=== PATIENT | male | born 1960 | race Caucasian/White ===

== ENCOUNTER 2020-05-09 12:58 | Inpatient (IN) | payer MEDICAID ==
[~2020-05-09] VITALS: Ht 188 cm; Wt 155.1 kg
[2020-05-09] MEDS ORDERED: PANTOPRAZOLE SODIUM 40 MG/VIAL IV ONE (13:30)
[2020-05-09] MEDS ORDERED: CEFTRIAXONE 1 G PREMIX 50 ML IV ONE (13:30)
[2020-05-09] MEDS ORDERED: CALCIUM GLUCONATE 100MG/ML 10ML VIAL IV ONE (13:30)
[2020-05-09 14:39] LABS: BASOPHILS % 0.6 % (0.0-2.0); EOSINOPHILS % 5.6 % (0.0-5.0); HEMATOCRIT. 22.7 % (42.0-52.0); HEMOGLOBIN. 7.6 g/dL (14.0-18.0); LYMPHOCYTES % 23.8 % (20.0-50.0); MEAN CORPUSCULAR HEMOGLOBIN 37.1 pg (28.0-32.0); MEAN CORPUSCULAR VOLUME 110.8 fL (80.0-94.0); MEAN PLATELET VOLUME 7.8 fl (7.4-10.4); MONOCYTES % 6.3 % (2.0-8.0); NEUTROPHILS % 63.7 % (40.0-76.0); PLATELET 90 x1000/uL (130-400); RED BLOOD CELL COUNT 2.05 mill/uL (4.7-6.1); RED CELL DISTRIBUTION WIDTH 15.4 % (11.6-14.6)
[2020-05-09 14:44] LABS: CHLORIDE 116 mEq/L (98-107)
[2020-05-09 15:15] LABS: PLATELET ESTIMATE DECREASED
[2020-05-09] MEDS ORDERED: LORAZEPAM 0.5MG TABLET PO PRN (16:15)
[2020-05-09] MEDS ORDERED: ONDANSETRON HCL 4MG/2ML INJ IV PRN (16:15)
[2020-05-09] MEDS ORDERED: ACETAMINOPHEN 325MG TABLET PO PRN ×2 (16:15)
[2020-05-09] MEDS ORDERED: IPRATROPIUM/ALBUTEROL 0.5-3(2.5)MG/3ML NEB HHN PRN (16:15)
[2020-05-09 16:37] LABS: INR 1.1; PROTHROMBIN TIME 11.8 sec (9.6-11.0)
[2020-05-09] MEDS ORDERED: HYDROMORPHONE HCL/PF 2MG/ML CPJ IV NR (17:30)
[2020-05-09] MEDS: PANTOPRAZOLE SODIUM 40 MG/VIAL IV SCH (22:06)
[2020-05-09] MEDS: RIFAXIMIN 200MG TABLET PO SCH (22:14)
[2020-05-09 23:11] LABS: CHLORIDE 117 mEq/L (98-107)
[2020-05-10] VITALS (24 sets, daily range): BP systolic 127–168; BP diastolic 56–83
[2020-05-10] MEDS ORDERED: MORP30TA66 MT (03:43)
[2020-05-10] MEDS ORDERED: FURO80TA87 PO (03:43)
[2020-05-10] MEDS ORDERED: LIP40 MT (03:43)
[2020-05-10] MEDS ORDERED: INSLIS SUBCUT (03:43)
[2020-05-10] MEDS ORDERED: GABA-532 MT (03:43)
[2020-05-10] MEDS ORDERED: METF-414 MT (03:43)
[2020-05-10] MEDS ORDERED: DEXTROSE 50% WATER 50ML SYRINGE IV PRN (04:30)
[2020-05-10] MEDS: BLOOD SUGAR DIAGNOSTIC STRIP TEST SCH ×4 (06:15→20:27)
[2020-05-10] MEDS: INSULIN LISPRO 100 UNITS/ML SUBCUT SCH ×4 (07:06→20:27)
[2020-05-10] MEDS ORDERED: INSULIN REGULAR (HUMULIN R) 300UNITS/3ML VIAL IV SCH (08:00)
[2020-05-10] MEDS: DEXT 5%/0.9% NACL 1,000 ML IV SCH ×3 (08:00→23:33)
[2020-05-10] MEDS ORDERED: DEXTROSE 50% WATER 50ML SYRINGE IV SCH (08:00)
[2020-05-10] MEDS ORDERED: PNEUMOCOCCAL 23-VAL P-SAC VAC 0.5 ML IM ONE (08:00)
[2020-05-10] MEDS: PANTOPRAZOLE SODIUM 40 MG/VIAL IV SCH ×2 (08:12→20:27)
[2020-05-10 08:50] LABS: BASOPHILS % 0.6 % (0.0-2.0); EOSINOPHILS % 5.1 % (0.0-5.0); LYMPHOCYTES % 29.6 % (20.0-50.0); MEAN CORPUSCULAR HEMOGLOBIN 37.2 pg (28.0-32.0); MEAN CORPUSCULAR VOLUME 110.3 fL (80.0-94.0); MEAN PLATELET VOLUME 7.7 fl (7.4-10.4); MONOCYTES % 5.8 % (2.0-8.0); NEUTROPHILS % 58.9 % (40.0-76.0); PLATELET 71 x1000/uL (130-400); RED BLOOD CELL COUNT 1.71 mill/uL (4.7-6.1); RED CELL DISTRIBUTION WIDTH 15.1 % (11.6-14.6)
[2020-05-10] MEDS: RIFAXIMIN 200MG TABLET PO SCH (09:00)
[2020-05-10 09:32] LABS: HEMATOCRIT. 18.9 % (42.0-52.0); HEMOGLOBIN. 6.4 g/dL (14.0-18.0)
[2020-05-10 09:33] LABS: VITAMIN B12 SERUM 691 pg/mL (211-911)
[2020-05-10 09:55] LABS: FOLIC ACID (FOLATE) SERUM >20 ng/mL ng/mL (>5.38)
[2020-05-10] MEDS ORDERED: ALBUTEROL (0.083%) 2.5MG/3ML NEB HHN NR (11:00)
[2020-05-10 11:20] LABS: FERRITIN 151 ng/mL (22-322)
[2020-05-10] MEDS ORDERED: SODIUM POLYSTYRENE SULFONATE 15 G/60 ML BOT PO NR ×2 (12:00→16:30)
[2020-05-10] MEDS: HYDROCODONE/ACETAMINOPHEN 5/325MG TABLET PO PRN ×2 (12:17→23:41)
[2020-05-10] MEDS ORDERED: CEFTRIAXONE 1,000 MG in DEXTROSE 5% WATER 50 ML IV SCH (13:00)
[2020-05-10] MEDS: CEFTRIAXONE 1,000 MG in DEXTROSE 5% WATER 50 ML IV SCH (14:32)
[2020-05-10 15:25] LABS: HEMATOCRIT 20.7 % (42.0-52.0)
[2020-05-10] MEDS: RIFAXIMIN 550 MG TABLET PO SCH (18:02)
[2020-05-10] MEDS: CLONIDINE 0.1MG TABLET PO PRN (20:27)
[2020-05-10 21:57] LABS: BASOPHILS % 0.6 % (0.0-2.0); EOSINOPHILS % 2.8 % (0.0-5.0); HEMATOCRIT. 23.5 % (42.0-52.0); HEMOGLOBIN. 8.1 g/dL (14.0-18.0); LYMPHOCYTES % 20.7 % (20.0-50.0); MEAN CORPUSCULAR HEMOGLOBIN 35.9 pg (28.0-32.0); MEAN CORPUSCULAR VOLUME 103.7 fL (80.0-94.0); MEAN PLATELET VOLUME 7.2 fl (7.4-10.4); MONOCYTES % 7.9 % (2.0-8.0); PLATELET 72 x1000/uL (130-400); RED BLOOD CELL COUNT 2.26 mill/uL (4.7-6.1); RED CELL DISTRIBUTION WIDTH 18.6 % (11.6-14.6)
[2020-05-11] VITALS (10 sets, daily range): BP systolic 140–177; BP diastolic 68–89
[2020-05-11] MEDS: BLOOD SUGAR DIAGNOSTIC STRIP TEST SCH ×4 (06:06→21:00)
[2020-05-11 06:15] LABS: BASOPHILS % 0.6 % (0.0-2.0); EOSINOPHILS % 4.7 % (0.0-5.0); HEMOGLOBIN. 7.6 g/dL (14.0-18.0); LYMPHOCYTES % 27.2 % (20.0-50.0); MEAN CORPUSCULAR HEMOGLOBIN 36.6 pg (28.0-32.0); MEAN CORPUSCULAR VOLUME 106.4 fL (80.0-94.0); MEAN PLATELET VOLUME 7.8 fl (7.4-10.4); MONOCYTES % 7.7 % (2.0-8.0); NEUTROPHILS % 59.8 % (40.0-76.0); PLATELET 70 x1000/uL (130-400); RED BLOOD CELL COUNT 2.07 mill/uL (4.7-6.1); RED CELL DISTRIBUTION WIDTH 18.7 % (11.6-14.6)
[2020-05-11 06:18] LABS: CLARITY URINE CLOUDY (CLEAR); COLOR URINE YELLOW (YELLOW); KETONES URINE TRACE (NEGATIVE); LEUKOCYTE ESTERASE URINE 3+ (NEGATIVE); NITRITE URINE NEGATIVE (NEGATIVE); OCCULT BLOOD URINE 2+ (NEGATIVE); PROTEIN URINE 3+ (NEGATIVE); SPECIFIC GRAVITY URINE 1.017 (1.005-1.030); UROBILINOGEN URINE 0.2 E.U./dL (0.2-1.0)
[2020-05-11 06:21] LABS: INR 1.2; PROTHROMBIN TIME 12.6 sec (9.6-11.0)
[2020-05-11] MEDS: INSULIN LISPRO 100 UNITS/ML SUBCUT SCH ×4 (07:20→21:00)
[2020-05-11] MEDS: DEXT 5%/0.9% NACL 1,000 ML IV SCH ×4 (08:06→23:40)
[2020-05-11] MEDS: RIFAXIMIN 550 MG TABLET PO SCH ×2 (08:07→16:47)
[2020-05-11] MEDS: PANTOPRAZOLE SODIUM 40 MG/VIAL IV SCH ×2 (08:08→21:25)
[2020-05-11] MEDS: CALCIUM ACETATE 667MG CAPSULE PO SCH ×2 (09:15→16:46)
[2020-05-11] MEDS: SODIUM POLYSTYRENE SULFONATE 15 G/60 ML BOT PO NR ×2 (10:20→10:30)
[2020-05-11] MEDS: MORPHINE SULFATE 2 MG/ML CPJ (NOT FOR IM USE) IV PRN ×2 (10:20→20:20)
[2020-05-11 11:32] LABS: CHLORIDE 119 mEq/L (98-107)
[2020-05-11] MEDS: CEFTRIAXONE 1,000 MG in DEXTROSE 5% WATER 50 ML IV SCH (12:51)
[2020-05-11] MEDS ORDERED: PROPOFOL 200MG/20ML VIAL IV ONE (15:47)
[2020-05-11] MEDS ORDERED: LABETALOL 5MG/ML SYR 20 MG/4 ML SYRINGE IV PRN (16:00)
[2020-05-11] MEDS ORDERED: ONDANSETRON HCL 4MG/2ML INJ IV PRN (16:00)
[2020-05-11] MEDS ORDERED: HYDROMORPHONE HCL/PF 2MG/ML CPJ IV PRN (16:00)
[2020-05-11] MEDS ORDERED: MEPERIDINE HCL/PF 25MG/ML CPJ IV PRN (16:00)
[2020-05-11] MEDS: BACITRACIN 15GM TUBE TOP SCH ×2 (16:46→21:26)
[2020-05-11 19:44] LABS: HEMATOCRIT 23.8 % (42.0-52.0); HEMOGLOBIN 8.1 g/dL (14.0-18.0); MEAN CORPUSCULAR HEMOGLOBIN 36.4 pg (28.0-32.0); MEAN CORPUSCULAR VOLUME 106.3 fL (80.0-94.0); PLATELET 69 x1000/uL (130-400); RED BLOOD CELL COUNT 2.24 mill/uL (4.7-6.1); RED CELL DISTRIBUTION WIDTH 17.8 % (11.6-14.6)
[2020-05-11 19:53] LABS: CHLORIDE 120 mEq/L (98-107)
[2020-05-11 20:20] LABS: HEPATITIS B SURFACE ANTIGEN NEGATIVE
[2020-05-11 20:50] LABS: HEPATITIS A AB IGM NEGATIVE (NEGATIVE)
[2020-05-11] MEDS ORDERED: SORBITOL 70% SOLN 30ML PO NR (21:00)
[2020-05-12] VITALS (11 sets, daily range): BP systolic 143–183; BP diastolic 63–98
[2020-05-12] MEDS: CLONIDINE 0.1MG TABLET PO PRN ×2 (00:41→06:53)
[2020-05-12] MEDS: MORPHINE SULFATE 2 MG/ML CPJ (NOT FOR IM USE) IV PRN ×4 (02:26→21:40)
[2020-05-12] MEDS ORDERED: SORBITOL 70% SOLN 30ML PO NR ×2 (06:00)
[2020-05-12] MEDS: BLOOD SUGAR DIAGNOSTIC STRIP TEST SCH ×4 (06:28→21:00)
[2020-05-12] MEDS: INSULIN LISPRO 100 UNITS/ML SUBCUT SCH ×4 (06:28→21:00)
[2020-05-12 07:45] LABS: BASOPHILS % 0.9 % (0.0-2.0); EOSINOPHILS % 5.1 % (0.0-5.0); HEMATOCRIT. 22.7 % (42.0-52.0); HEMOGLOBIN. 7.8 g/dL (14.0-18.0); LYMPHOCYTES % 24.3 % (20.0-50.0); MEAN CORPUSCULAR VOLUME 105.1 fL (80.0-94.0); MEAN PLATELET VOLUME 7.8 fl (7.4-10.4); MONOCYTES % 7.4 % (2.0-8.0); NEUTROPHILS % 62.3 % (40.0-76.0); PLATELET 70 x1000/uL (130-400); RED BLOOD CELL COUNT 2.16 mill/uL (4.7-6.1); RED CELL DISTRIBUTION WIDTH 17.9 % (11.6-14.6)
[2020-05-12] MEDS: DEXT 5%/0.9% NACL 1,000 ML IV SCH (07:50)
[2020-05-12] MEDS: RIFAXIMIN 550 MG TABLET PO SCH ×2 (08:03→17:00)
[2020-05-12] MEDS: PANTOPRAZOLE SODIUM 40 MG/VIAL IV SCH ×2 (08:03→21:40)
[2020-05-12] MEDS: AMLODIPINE 5MG TABLET PO SCH (08:07)
[2020-05-12] MEDS: CALCIUM ACETATE 667MG CAPSULE PO SCH ×2 (08:07→17:00)
[2020-05-12] MEDS: BACITRACIN 15GM TUBE TOP SCH ×2 (08:07→21:40)
[2020-05-12] MEDS ORDERED: FUROSEMIDE 40MG TABLET PO SCH (09:00)
[2020-05-12] MEDS ORDERED: NA PHOS,M-B/NA PHOS,DI-BA ENEMA 118ML PR NR (11:00)
[2020-05-12] MEDS: CEFTRIAXONE 1,000 MG in DEXTROSE 5% WATER 50 ML IV SCH (13:51)
[2020-05-12] MEDS: FUROSEMIDE 40MG/4ML VIAL IVP SCH (16:42)
[2020-05-12] MEDS ORDERED: DIPHENHYDRAMINE 50MG/ML VIAL ONE (17:33)
[2020-05-12] MEDS ORDERED: FENTANYL CITRATE/PF 50MCG/ML 2ML VIAL ONE (17:33)
[2020-05-12] MEDS ORDERED: MIDAZOLAM HCL 2 MG/2 ML VIAL ONE (17:33)
[2020-05-12] MEDS ORDERED: PROPOFOL 200MG/20ML VIAL IV ONE (17:34)
[2020-05-12] MEDS ORDERED: LIDOCAINE HCL 1% 20ML VIAL (Pyxis) INJ ONE (17:34)
[2020-05-12 20:27] LABS: HEMATOCRIT 25.1 % (42.0-52.0); HEMOGLOBIN 8.6 g/dL (14.0-18.0); MEAN CORPUSCULAR HEMOGLOBIN 36.3 pg (28.0-32.0); MEAN CORPUSCULAR VOLUME 105.5 fL (80.0-94.0); PLATELET 74 x1000/uL (130-400); RED BLOOD CELL COUNT 2.37 mill/uL (4.7-6.1); RED CELL DISTRIBUTION WIDTH 17.4 % (11.6-14.6)
[2020-05-12 20:37] LABS: CHLORIDE 121 mEq/L (98-107)
[2020-05-12 20:41] LABS: INR 1.2; PARTIAL THROMBOPLASTIN TIME 32.8 sec (23.4-31.0); PROTHROMBIN TIME 12.4 sec (9.6-11.0)
[2020-05-13] VITALS (12 sets, daily range): BP systolic 132–160; BP diastolic 59–91
[2020-05-13 06:16] LABS: BASOPHILS % 0.5 % (0.0-2.0); EOSINOPHILS % 5.1 % (0.0-5.0); HEMATOCRIT. 22.7 % (42.0-52.0); HEMOGLOBIN. 7.6 g/dL (14.0-18.0); MEAN CORPUSCULAR HEMOGLOBIN 35.5 pg (28.0-32.0); MEAN CORPUSCULAR VOLUME 105.4 fL (80.0-94.0); MEAN PLATELET VOLUME 7.7 fl (7.4-10.4); MONOCYTES % 5.4 % (2.0-8.0); PLATELET 68 x1000/uL (130-400); RED BLOOD CELL COUNT 2.15 mill/uL (4.7-6.1); RED CELL DISTRIBUTION WIDTH 17.4 % (11.6-14.6)
[2020-05-13] MEDS: BLOOD SUGAR DIAGNOSTIC STRIP TEST SCH ×4 (06:18→20:16)
[2020-05-13] MEDS: INSULIN LISPRO 100 UNITS/ML SUBCUT SCH ×4 (06:32→21:00)
[2020-05-13] MEDS: PANTOPRAZOLE SODIUM 40 MG/VIAL IV SCH ×2 (08:22→22:13)
[2020-05-13] MEDS: FUROSEMIDE 40MG/4ML VIAL IVP SCH ×2 (08:22→16:52)
[2020-05-13] MEDS: CALCIUM ACETATE 667MG CAPSULE PO SCH ×2 (08:23→16:52)
[2020-05-13] MEDS: RIFAXIMIN 550 MG TABLET PO SCH ×2 (08:23→16:52)
[2020-05-13] MEDS: AMLODIPINE 5MG TABLET PO SCH (08:23)
[2020-05-13] MEDS: BACITRACIN 15GM TUBE TOP SCH ×2 (08:24→22:13)
[2020-05-13] MEDS: MORPHINE SULFATE 2 MG/ML CPJ (NOT FOR IM USE) IV PRN ×2 (08:24→20:16)
[2020-05-13] MEDS: CARVEDILOL 6.25 MG TABLET PO SCH ×2 (09:43→22:13)
[2020-05-13] MEDS: CEFTRIAXONE 1,000 MG in DEXTROSE 5% WATER 50 ML IV SCH (14:45)
[2020-05-14] VITALS (12 sets, daily range): BP systolic 144–176; BP diastolic 67–89
[2020-05-14] MEDS: MORPHINE SULFATE 2 MG/ML CPJ (NOT FOR IM USE) IV PRN ×3 (03:43→20:24)
[2020-05-14] MEDS: BLOOD SUGAR DIAGNOSTIC STRIP TEST SCH ×4 (06:15→20:56)
[2020-05-14] MEDS: INSULIN LISPRO 100 UNITS/ML SUBCUT SCH ×4 (06:15→20:56)
[2020-05-14] MEDS: FUROSEMIDE 40MG/4ML VIAL IVP SCH ×2 (06:51→18:03)
[2020-05-14 07:03] LABS: BASOPHILS % 0.6 % (0.0-2.0); EOSINOPHILS % 6.3 % (0.0-5.0); HEMATOCRIT. 23.3 % (42.0-52.0); LYMPHOCYTES % 21.4 % (20.0-50.0); MEAN CORPUSCULAR HEMOGLOBIN 36.4 pg (28.0-32.0); MEAN CORPUSCULAR VOLUME 105.6 fL (80.0-94.0); MEAN PLATELET VOLUME 7.9 fl (7.4-10.4); MONOCYTES % 5.8 % (2.0-8.0); NEUTROPHILS % 65.9 % (40.0-76.0); PLATELET 63 x1000/uL (130-400)
[2020-05-14 07:24] LABS: PHOSPHORUS 4.1 mg/dL (2.5-4.9)
[2020-05-14] MEDS ORDERED: IOHEXOL-350 100 ML BOTTLE ONE (09:18)
[2020-05-14] MEDS: RIFAXIMIN 550 MG TABLET PO SCH ×2 (10:02→18:03)
[2020-05-14] MEDS: PANTOPRAZOLE SODIUM 40 MG/VIAL IV SCH ×2 (10:02→20:25)
[2020-05-14] MEDS: AMLODIPINE 5MG TABLET PO SCH (10:03)
[2020-05-14] MEDS: CARVEDILOL 6.25 MG TABLET PO SCH ×2 (10:03→20:25)
[2020-05-14] MEDS: CALCIUM ACETATE 667MG CAPSULE PO SCH ×2 (10:03→18:03)
[2020-05-14] MEDS: BACITRACIN 15GM TUBE TOP SCH ×2 (10:05→20:56)
[2020-05-14] MEDS ORDERED: SODIUM POLYSTYRENE SULFONATE 15 G/60 ML BOT PO SCH (13:00)
[2020-05-14] MEDS: CEFTRIAXONE 1,000 MG in DEXTROSE 5% WATER 50 ML IV SCH (13:55)
[2020-05-15] VITALS (11 sets, daily range): BP systolic 121–163; BP diastolic 60–80
[2020-05-15] MEDS: MORPHINE SULFATE 2 MG/ML CPJ (NOT FOR IM USE) IV PRN ×3 (05:57→20:14)
[2020-05-15] MEDS: CLONIDINE 0.1MG TABLET PO PRN (06:02)
[2020-05-15] MEDS: BLOOD SUGAR DIAGNOSTIC STRIP TEST SCH ×4 (06:17→20:15)
[2020-05-15] MEDS: INSULIN LISPRO 100 UNITS/ML SUBCUT SCH ×4 (07:20→20:36)
[2020-05-15] MEDS: BACITRACIN 15GM TUBE TOP SCH ×2 (08:30→21:00)
[2020-05-15] MEDS: FUROSEMIDE 40MG/4ML VIAL IVP SCH ×2 (08:30→17:46)
[2020-05-15] MEDS: PANTOPRAZOLE SODIUM 40 MG/VIAL IV SCH ×2 (08:30→20:13)
[2020-05-15] MEDS: RIFAXIMIN 550 MG TABLET PO SCH ×2 (08:31→17:46)
[2020-05-15] MEDS: CARVEDILOL 6.25 MG TABLET PO SCH ×2 (08:31→20:14)
[2020-05-15] MEDS: AMLODIPINE 5MG TABLET PO SCH (08:31)
[2020-05-15] MEDS: CALCIUM ACETATE 667MG CAPSULE PO SCH ×2 (08:31→17:46)
[2020-05-15 09:38] LABS: BASOPHILS % 0.7 % (0.0-2.0); HEMATOCRIT. 23.8 % (42.0-52.0); HEMOGLOBIN. 8.2 g/dL (14.0-18.0); LYMPHOCYTES % 22.1 % (20.0-50.0); MEAN CORPUSCULAR HEMOGLOBIN 35.8 pg (28.0-32.0); MEAN CORPUSCULAR VOLUME 104.3 fL (80.0-94.0); MEAN PLATELET VOLUME 7.6 fl (7.4-10.4); MONOCYTES % 6.8 % (2.0-8.0); NEUTROPHILS % 64.4 % (40.0-76.0); PLATELET 64 x1000/uL (130-400); RED BLOOD CELL COUNT 2.28 mill/uL (4.7-6.1)
[2020-05-15] MEDS ORDERED: SODIUM POLYSTYRENE SULFONATE 15 G/60 ML BOT PO NR (13:00)
[2020-05-15] MEDS: LACTULOSE 20G/30ML UDC PO SCH (20:14)
[2020-05-16] VITALS (12 sets, daily range): BP systolic 140–172; BP diastolic 57–80
[2020-05-16] MEDS: MORPHINE SULFATE 2 MG/ML CPJ (NOT FOR IM USE) IV PRN ×2 (02:33→09:38)
[2020-05-16] MEDS: BLOOD SUGAR DIAGNOSTIC STRIP TEST SCH ×4 (05:54→20:35)
[2020-05-16] MEDS: INSULIN LISPRO 100 UNITS/ML SUBCUT SCH ×4 (06:41→20:35)
[2020-05-16] MEDS: FUROSEMIDE 40MG/4ML VIAL IVP SCH ×2 (08:09→16:50)
[2020-05-16] MEDS: CALCIUM ACETATE 667MG CAPSULE PO SCH ×2 (08:09→16:50)
[2020-05-16] MEDS: CARVEDILOL 6.25 MG TABLET PO SCH ×2 (08:09→20:29)
[2020-05-16] MEDS: PANTOPRAZOLE SODIUM 40 MG/VIAL IV SCH ×2 (08:09→20:28)
[2020-05-16] MEDS: AMLODIPINE 5MG TABLET PO SCH (08:10)
[2020-05-16] MEDS: BACITRACIN 15GM TUBE TOP SCH ×2 (08:18→20:29)
[2020-05-16 08:25] LABS: HEMATOCRIT. 21.8 % (42.0-52.0); HEMOGLOBIN. 7.4 g/dL (14.0-18.0); LYMPHOCYTES % 24.6 % (20.0-50.0); MEAN CORPUSCULAR VOLUME 106.1 fL (80.0-94.0); MONOCYTES % 6.6 % (2.0-8.0); NEUTROPHILS % 61.8 % (40.0-76.0); PLATELET 60 x1000/uL (130-400); RED BLOOD CELL COUNT 2.06 mill/uL (4.7-6.1); RED CELL DISTRIBUTION WIDTH 17.2 % (11.6-14.6)
[2020-05-16 08:47] LABS: PHOSPHORUS 4.6 mg/dL (2.5-4.9)
[2020-05-16] MEDS ORDERED: NALOXONE HCL 0.4 MG/ML 1ML VIAL IV PRN (11:15)
[2020-05-16] MEDS: OXYCODONE HCL 5MG TABLET PO PRN ×2 (17:07→20:29)
[2020-05-16] MEDS: LACTULOSE 20G/30ML UDC PO SCH (20:28)
[2020-05-16] MEDS ORDERED: MORPHINE SULFATE 15MG TABLET SR PO SCH (21:00)
[2020-05-17] VITALS (10 sets, daily range): BP systolic 99–162; BP diastolic 66–151
[2020-05-17] MEDS: OXYCODONE HCL 5MG TABLET PO PRN ×3 (03:33→14:05)
[2020-05-17] MEDS: BLOOD SUGAR DIAGNOSTIC STRIP TEST SCH ×2 (06:14→11:54)
[2020-05-17] MEDS: INSULIN LISPRO 100 UNITS/ML SUBCUT SCH ×2 (07:01→11:54)
[2020-05-17 07:47] LABS: BASOPHILS % 0.6 % (0.0-2.0); EOSINOPHILS % 5.6 % (0.0-5.0); HEMATOCRIT. 22.6 % (42.0-52.0); HEMOGLOBIN. 7.6 g/dL (14.0-18.0); LYMPHOCYTES % 26.3 % (20.0-50.0); MEAN CORPUSCULAR HEMOGLOBIN 35.4 pg (28.0-32.0); MONOCYTES % 7.6 % (2.0-8.0); NEUTROPHILS % 59.9 % (40.0-76.0); PLATELET 68 x1000/uL (130-400); RED BLOOD CELL COUNT 2.15 mill/uL (4.7-6.1); RED CELL DISTRIBUTION WIDTH 16.8 % (11.6-14.6)
[2020-05-17] MEDS: FUROSEMIDE 40MG/4ML VIAL IVP SCH (08:14)
[2020-05-17] MEDS: PANTOPRAZOLE SODIUM 40 MG/VIAL IV SCH (08:14)
[2020-05-17] MEDS: CALCIUM ACETATE 667MG CAPSULE PO SCH (08:15)
[2020-05-17] MEDS: AMLODIPINE 5MG TABLET PO SCH (08:15)
[2020-05-17] MEDS: CARVEDILOL 6.25 MG TABLET PO SCH (08:16)
[2020-05-17] MEDS: BACITRACIN 15GM TUBE TOP SCH (08:16)
[2020-05-17] MEDS ORDERED: FUROSEMIDE 40MG/4ML VIAL IVP SCH (17:15)
[2020-05-18] MEDS ORDERED: METOLAZONE 2.5MG TABLET PO SCH (09:00)
== END 2020-05-17 14:37 | DRG 254 ==
LOC: ER 12:58 → EDBEDREQ 14:22 → 3WST 14:51 → EDBEDREQ 15:03 → ENRESERV 05-10 01:47
PROVIDERS: ADMIT Internal Medicine; ATTEND Internal Medicine
PROC: 30233N1 Transfusion of Nonautologous Red Blood Cells into Peripheral Vein, Percutaneous Approach (ICD-10-PCS; principal; 2020-05-10)
PROC: 0JBQ0ZZ Excision of Right Foot Subcutaneous Tissue and Fascia, Open Approach (ICD-10-PCS; 2020-05-10)
PROC: 0DB78ZX Excision of Stomach, Pylorus, Via Natural or Artificial Opening Endoscopic, Diagnostic (ICD-10-PCS; 2020-05-11)
PROC: 0DJD8ZZ Inspection of Lower Intestinal Tract, Via Natural or Artificial Opening Endoscopic (ICD-10-PCS; 2020-05-12)
DX: K64.8 Other hemorrhoids (principal); I50.33 Acute on chronic diastolic (congestive) heart failure; E43 Unspecified severe protein-calorie malnutrition; N17.9 Acute kidney failure, unspecified; D61.818 Other pancytopenia; D69.6 Thrombocytopenia, unspecified; E11.22 Type 2 diabetes mellitus with diabetic chronic kidney disease; E11.51 Type 2 diabetes mellitus with diabetic peripheral angiopathy without gangrene; E87.5 Hyperkalemia; K44.9 Diaphragmatic hernia without obstruction or gangrene; K76.6 Portal hypertension; K21.9 Gastro-esophageal reflux disease without esophagitis; K74.60 Unspecified cirrhosis of liver; F11.20 Opioid dependence, uncomplicated; R18.8 Other ascites; D53.9 Nutritional anemia, unspecified; E78.5 Hyperlipidemia, unspecified; F17.200 Nicotine dependence, unspecified, uncomplicated; G89.29 Other chronic pain; I13.0 Hypertensive heart and chronic kidney disease with heart failure and stage 1 through stage 4 chronic kidney disease, or unspecified chronic kidney disease; N18.9 Chronic kidney disease, unspecified; N50.89 Other specified disorders of the male genital organs; I87.2 Venous insufficiency (chronic) (peripheral); B19.20 Unspecified viral hepatitis C without hepatic coma; I48.0 Paroxysmal atrial fibrillation; E78.00 Pure hypercholesterolemia, unspecified; L97.919 Non-pressure chronic ulcer of unspecified part of right lower leg with unspecified severity; L97.929 Non-pressure chronic ulcer of unspecified part of left lower leg with unspecified severity; K27.9 Peptic ulcer, site unspecified, unspecified as acute or chronic, without hemorrhage or perforation; E27.9 Disorder of adrenal gland, unspecified; M54.9 Dorsalgia, unspecified; I87.8 Other specified disorders of veins; R26.89 Other abnormalities of gait and mobility; S30.0XXA Contusion of lower back and pelvis, initial encounter; W18.39XA Other fall on same level, initial encounter; I27.20 Pulmonary hypertension, unspecified; M51.16 Intervertebral disc disorders with radiculopathy, lumbar region; M47.26 Other spondylosis with radiculopathy, lumbar region; F14.10 Cocaine abuse, uncomplicated; M48.061 Spinal stenosis, lumbar region without neurogenic claudication; K31.89 Other diseases of stomach and duodenum; Z20.822 Contact with and (suspected) exposure to COVID-19; R16.2 Hepatomegaly with splenomegaly, not elsewhere classified; I31.3 Pericardial effusion (noninflammatory); N39.0 Urinary tract infection, site not specified; Z16.12 Extended spectrum beta lactamase (ESBL) resistance; Z86.16 Personal history of COVID-19; Z87.19 Personal history of other diseases of the digestive system; Z90.49 Acquired absence of other specified parts of digestive tract; Z68.41 Body mass index [BMI] 40.0-44.9, adult; Y93.89 Activity, other specified; Y99.8 Other external cause status; Y92.002 Bathroom of unspecified non-institutional (private) residence as the place of occurrence of the external cause; K29.70 Gastritis, unspecified, without bleeding; K92.1 Melena
CPT/HCPCS: 36415; 71045; 74176; 76700; 80048; 80053; 80061; 81003; 82040; 82105; 82140; 82550; 82570; 82607; 82728; 82746; 82962; 83036; 83540; 83550; 83735; 83880; 84100; 84132; 84134; 84156; 84484; 85014; 85018; 85025; 85027; 85044; 86705; 86709; 86803; 86850; 86900; 86920; 87070; 87075; 87077; 87186; 87340; 87426; 88305; 88313; 93005; 93306; 93923; 94640; 97110; 97162; 97530; 99291; C9113; J0610; J0696; J1170; J1200; J1940; J2250; J2270; J2405; J2704; J3010; J3490; J7040; J7042; J7060; P9016; Q9967

== ENCOUNTER 2020-07-12 05:25 | Inpatient (IN) | payer MEDICAID ==
[~2020-07-12] VITALS: Ht 180.3 cm; Wt 157.4 kg
[~2020-07-12 05:25] MED LIST: FURO80TA87 PO; GABA-532 MT; INSLIS SUBCUT; LIP40 MT; METF-414 MT; MORP30TA66 MT
[2020-07-12] MEDS ORDERED: MORPHINE SULFATE 4 MG/ML CPJ (NOT FOR IM USE) IV STA (08:21)
[2020-07-12 08:47] LABS: BASOPHILS % 0.7 % (0.0-2.0); EOSINOPHILS % 2.5 % (0.0-5.0); HEMOGLOBIN. 7.1 g/dL (14.0-18.0); LYMPHOCYTES % 18.4 % (20.0-50.0); MEAN CORPUSCULAR HEMOGLOBIN 36.6 pg (28.0-32.0); MEAN PLATELET VOLUME 8.3 fl (7.4-10.4); MONOCYTES % 4.9 % (2.0-8.0); NEUTROPHILS % 73.5 % (40.0-76.0); PLATELET 76 x1000/uL (130-400); RED BLOOD CELL COUNT 1.93 mill/uL (4.7-6.1); RED CELL DISTRIBUTION WIDTH 15.1 % (11.6-14.6)
[2020-07-12 08:51] LABS: CHLORIDE 117 mEq/L (98-107)
[2020-07-12 08:53] LABS: HEMATOCRIT. 20.9 % (42.0-52.0); INR 1.2; PROTHROMBIN TIME 12.7 sec (9.6-11.0)
[2020-07-12] MEDS ORDERED: ALBUTEROL (0.083%) 2.5MG/3ML NEB HHN ONE (09:15)
[2020-07-12] MEDS ORDERED: FUROSEMIDE 100MG/10ML VIAL IV STA (09:15)
[2020-07-12] MEDS ORDERED: INSULIN REGULAR (HUMULIN R) 300UNITS/3ML VIAL IV ONE (09:15)
[2020-07-12] MEDS ORDERED: SODIUM BICARBONATE 8.4% 1 MEQ/ML 50ML SYR IV ONE (09:15)
[2020-07-12] MEDS ORDERED: DEXTROSE 50% WATER 50ML SYRINGE IV ONE (09:15)
[2020-07-12] MEDS ORDERED: DIPHENHYDRAMINE 50MG/ML VIAL IV PRN (10:00)
[2020-07-12] MEDS ORDERED: ACETAMINOPHEN 325MG TABLET PO PRN (10:00)
[2020-07-12] MEDS ORDERED: IPRATROPIUM/ALBUTEROL 0.5-3(2.5)MG/3ML NEB HHN PRN (10:00)
[2020-07-12] MEDS ORDERED: LEVOFLOXACIN 750MG PREMIX 150 ML IV ONE (11:00)
[2020-07-12] MEDS ORDERED: SODIUM POLYSTYRENE SULFONATE 15 G/60 ML BOT PO NR (11:15)
[2020-07-12] MEDS ORDERED: MORPHINE SULFATE 4 MG/ML CPJ (NOT FOR IM USE) IV ONE (11:15)
[2020-07-12 12:16] LABS: CREATINE KINASE 100 IU/L (39-308)
[2020-07-12 14:50] LABS: TOTAL IRON BINDING CAPACITY 170 ug/dL (250-450)
[2020-07-12] MEDS ORDERED: CEFTRIAXONE 1 G PREMIX 50 ML IV SCH (15:00)
[2020-07-12 15:06] LABS: FOLIC ACID (FOLATE) SERUM >20 ng/mL ng/mL (>5.38)
[2020-07-12 15:16] LABS: VITAMIN B12 SERUM 616 pg/mL (211-911)
[2020-07-12 15:17] LABS: FERRITIN 307 ng/mL (22-322)
[2020-07-12] MEDS ORDERED: AZITHROMYCIN 500 MG in DEXT 5% WATER 250 ML IV SCH (15:30)
[2020-07-12] MEDS: MORPHINE SULFATE 2 MG/ML CPJ (NOT FOR IM USE) IV PRN ×2 (15:57→23:01)
[2020-07-13] VITALS (10 sets, daily range): BP systolic 91–161; BP diastolic 55–100
[2020-07-13] MEDS: MORPHINE SULFATE 2 MG/ML CPJ (NOT FOR IM USE) IV PRN ×2 (03:06→07:41)
[2020-07-13 08:23] LABS: BASOPHILS % 0.6 % (0.0-2.0); EOSINOPHILS % 3.5 % (0.0-5.0); LYMPHOCYTES % 26.9 % (20.0-50.0); MEAN CORPUSCULAR VOLUME 104.6 fL (80.0-94.0); MONOCYTES % 8.6 % (2.0-8.0); NEUTROPHILS % 60.4 % (40.0-76.0); PLATELET 59 x1000/uL (130-400); RED BLOOD CELL COUNT 1.86 mill/uL (4.7-6.1)
[2020-07-13 08:36] LABS: CHLORIDE 117 mEq/L (98-107)
[2020-07-13 08:44] LABS: HDL CHOLESTEROL 40 mg/dL (40-59); LDL CHOLESTEROL 22 mg/dL (5-100)
[2020-07-13 08:49] LABS: HEMATOCRIT. 19.5 % (42.0-52.0); HEMOGLOBIN. 6.7 g/dL (14.0-18.0)
[2020-07-13] MEDS: FUROSEMIDE 40MG/4ML VIAL IVP SCH ×2 (10:48→18:33)
[2020-07-13] MEDS ORDERED: SODIUM POLYSTYRENE SULFONATE 15 G/60 ML BOT PO NR (11:00)
[2020-07-13 11:36] LABS: T4 FREE 0.92 ng/dL (0.76-1.46)
[2020-07-13] MEDS: MORPHINE SULFATE 4 MG/ML CPJ (NOT FOR IM USE) IV PRN ×4 (11:42→23:34)
[2020-07-13] MEDS ORDERED: DIPHENHYDRAMINE 50MG/ML VIAL IV NR (12:30)
[2020-07-13 13:11] LABS: ANTI-NUCLEAR ANTIBODIES DIRECT Positive (Negative)
[2020-07-13] MEDS ORDERED: AZITHROMYCIN 500 MG in DEXT 5% WATER 250 ML IV SCH (16:30)
[2020-07-13] MEDS: CEFTRIAXONE 1,000 MG in DEXTROSE 5% WATER 50 ML IV SCH (16:55)
[2020-07-13] MEDS: CLONIDINE 0.1MG TABLET PO PRN (20:05)
[2020-07-14] VITALS (13 sets, daily range): BP systolic 136–167; BP diastolic 40–79
[2020-07-14 05:14] LABS: PHOSPHORUS 4.7 mg/dL (2.5-4.9)
[2020-07-14] MEDS: LEVOTHYROXINE SODIUM 25MCG TABLET PO SCH (06:32)
[2020-07-14 06:41] LABS: BASOPHILS % 0.5 % (0.0-2.0); EOSINOPHILS % 5.6 % (0.0-5.0); LYMPHOCYTES % 32.8 % (20.0-50.0); MEAN CORPUSCULAR HEMOGLOBIN 36.3 pg (28.0-32.0); MEAN CORPUSCULAR VOLUME 106.6 fL (80.0-94.0); MEAN PLATELET VOLUME 8.3 fl (7.4-10.4); MONOCYTES % 9.6 % (2.0-8.0); NEUTROPHILS % 51.5 % (40.0-76.0); PLATELET 59 x1000/uL (130-400); RED CELL DISTRIBUTION WIDTH 16.9 % (11.6-14.6)
[2020-07-14 06:48] LABS: HEMOGLOBIN. 6.2 g/dL (14.0-18.0)
[2020-07-14 06:49] LABS: HEMATOCRIT. 18.2 % (42.0-52.0)
[2020-07-14] MEDS ORDERED: ACETAMINOPHEN 325MG TABLET PO NR (07:15)
[2020-07-14] MEDS ORDERED: DIPHENHYDRAMINE 50MG CAPSULE PO NR ×2 (07:15→15:45)
[2020-07-14] MEDS: MORPHINE SULFATE 4 MG/ML CPJ (NOT FOR IM USE) IV PRN ×4 (07:26→22:28)
[2020-07-14] MEDS: FUROSEMIDE 40MG/4ML VIAL IVP SCH ×3 (09:39→18:31)
[2020-07-14] MEDS: AZITHROMYCIN 500 MG TABLET PO SCH (09:40)
[2020-07-14] MEDS ORDERED: LIDOCAINE HCL 1% 20ML VIAL (Pyxis) INJ ONE ×2 (10:35→12:55)
[2020-07-14 13:07] LABS: A/G RATIO 0.5 (0.7-1.7); ALBUMIN 2.1 g/dL (2.9-4.4); ALPHA-1-GLOBULIN 0.2 g/dL (0.0-0.4); ALPHA-2-GLOBULIN 0.5 g/dL (0.4-1.0); BETA GLOBULIN 0.9 g/dL (0.7-1.3); GAMMA GLOBULINS 2.7 g/dL (0.4-1.8); GLOBULIN TOTAL 4.2 g/dL (2.2-3.9); M-SPIKE Not Observed g/dL (Not Observed); TOTAL PROTEIN SERUM 6.3 g/dL (6.0-8.5)
[2020-07-14] MEDS: CLONIDINE 0.1MG TABLET PO PRN (13:54)
[2020-07-14] MEDS: ACETAMINOPHEN 325MG TABLET PO NR ×2 (15:50→22:27)
[2020-07-14] MEDS: CEFTRIAXONE 1,000 MG in DEXTROSE 5% WATER 50 ML IV SCH (18:31)
[2020-07-14 20:22] LABS: HEMATOCRIT 18.7 % (42.0-52.0); HEMOGLOBIN 6.3 g/dL (14.0-18.0)
[2020-07-14] MEDS: LACTULOSE 20G/30ML UDC PO SCH ×2 (21:00→22:20)
[2020-07-14] MEDS: IPRATROPIUM/ALBUTEROL 0.5-3(2.5)MG/3ML NEB HHN SCH (21:13)
[2020-07-15] VITALS (13 sets, daily range): BP systolic 138–166; BP diastolic 30–66
[2020-07-15] MEDS: CLONIDINE 0.1MG TABLET PO PRN (01:01)
[2020-07-15] MEDS: MORPHINE SULFATE 4 MG/ML CPJ (NOT FOR IM USE) IV PRN ×4 (02:16→21:58)
[2020-07-15] MEDS: IPRATROPIUM/ALBUTEROL 0.5-3(2.5)MG/3ML NEB HHN SCH ×4 (04:38→21:11)
[2020-07-15] MEDS: LEVOTHYROXINE SODIUM 25MCG TABLET PO SCH (06:09)
[2020-07-15 06:53] LABS: INR 1.2; PROTHROMBIN TIME 13.1 sec (9.6-11.0)
[2020-07-15 07:23] LABS: BASOPHILS % 0.4 % (0.0-2.0); EOSINOPHILS % 5.9 % (0.0-5.0); LYMPHOCYTES % 35.6 % (20.0-50.0); MEAN CORPUSCULAR HEMOGLOBIN 35.2 pg (28.0-32.0); MEAN CORPUSCULAR VOLUME 101.9 fL (80.0-94.0); MEAN PLATELET VOLUME 8.7 fl (7.4-10.4); MONOCYTES % 9.7 % (2.0-8.0); NEUTROPHILS % 48.4 % (40.0-76.0); PLATELET 51 x1000/uL (130-400); RED BLOOD CELL COUNT 2.04 mill/uL (4.7-6.1); RED CELL DISTRIBUTION WIDTH 18.4 % (11.6-14.6)
[2020-07-15 08:27] LABS: HEMATOCRIT. 20.8 % (42.0-52.0); HEMOGLOBIN. 7.2 g/dL (14.0-18.0)
[2020-07-15] MEDS: FUROSEMIDE 40MG/4ML VIAL IVP SCH ×2 (08:35→16:19)
[2020-07-15] MEDS: AZITHROMYCIN 500 MG TABLET PO SCH (08:36)
[2020-07-15] MEDS ORDERED: SODIUM POLYSTYRENE SULFONATE 15 G/60 ML BOT PO NR (09:00)
[2020-07-15] MEDS: LEVOFLOXACIN 500MG PREMIX 100 ML IV SCH (13:30)
[2020-07-15] MEDS: METRONIDAZOLE 500 MG PREMIX 100 ML IV SCH ×2 (13:30→22:02)
[2020-07-15] MEDS ORDERED: LIDOCAINE HCL 1% 20ML VIAL (Pyxis) INJ ONE (15:04)
[2020-07-15] MEDS: LACTULOSE 20G/30ML UDC PO SCH (21:00)
[2020-07-15] MEDS: HYDROCODONE/ACETAMINOPHEN 5/325MG TABLET PO PRN (21:07)
[2020-07-15 23:04] LABS: HEMATOCRIT 24.9 % (42.0-52.0); HEMOGLOBIN 8.5 g/dL (14.0-18.0)
[2020-07-15 23:06] LABS: INR 1.2
[2020-07-16] VITALS: BP 152/55
[2020-07-16] MEDS: CLONIDINE 0.1MG TABLET PO PRN (00:29)
[2020-07-16] MEDS: IPRATROPIUM/ALBUTEROL 0.5-3(2.5)MG/3ML NEB HHN SCH ×4 (02:17→20:45)
[2020-07-16] MEDS: HYDROCODONE/ACETAMINOPHEN 10/325MG TABLET PO PRN ×2 (03:06→21:54)
[2020-07-16 04:00] VITALS: BP 148/37
[2020-07-16] MEDS: HYDROCODONE/ACETAMINOPHEN 5/325MG TABLET PO PRN (05:00)
[2020-07-16] MEDS: MORPHINE SULFATE 4 MG/ML CPJ (NOT FOR IM USE) IV PRN ×4 (05:51→23:17)
[2020-07-16] MEDS: METRONIDAZOLE 500 MG PREMIX 100 ML IV SCH ×3 (06:06→21:50)
[2020-07-16] MEDS: LEVOTHYROXINE SODIUM 25MCG TABLET PO SCH (06:06)
[2020-07-16 07:31] LABS: BASOPHILS % 0.4 % (0.0-2.0); EOSINOPHILS % 6.1 % (0.0-5.0); HEMATOCRIT. 22.5 % (42.0-52.0); HEMOGLOBIN. 7.8 g/dL (14.0-18.0); LYMPHOCYTES % 22.5 % (20.0-50.0); MEAN CORPUSCULAR HEMOGLOBIN 34.9 pg (28.0-32.0); MEAN CORPUSCULAR VOLUME 100.2 fL (80.0-94.0); MEAN PLATELET VOLUME 7.9 fl (7.4-10.4); RED BLOOD CELL COUNT 2.24 mill/uL (4.7-6.1); RED CELL DISTRIBUTION WIDTH 18.5 % (11.6-14.6)
[2020-07-16 07:41] LABS: PHOSPHORUS 4.5 mg/dL (2.5-4.9)
[2020-07-16 07:51] LABS: PLATELET 50 x1000/uL (130-400)
[2020-07-16 08:00] VITALS: BP 149/49
[2020-07-16] MEDS: FUROSEMIDE 40MG/4ML VIAL IVP SCH ×2 (08:43→16:15)
[2020-07-16 11:38] LABS: PLATELET ESTIMATE MARKEDLY DECREASED
[2020-07-16 12:00] VITALS: BP 135/48
[2020-07-16] MEDS: LEVOFLOXACIN 500MG PREMIX 100 ML IV SCH (14:00)
[2020-07-16 16:00] VITALS: BP 160/52
[2020-07-16 20:00] VITALS: BP 154/55
[2020-07-16] MEDS: LACTULOSE 20G/30ML UDC PO SCH (21:50)
[2020-07-17] VITALS: BP 172/68
[2020-07-17] MEDS: CLONIDINE 0.1MG TABLET PO PRN ×2 (00:41→12:13)
[2020-07-17] MEDS: IPRATROPIUM/ALBUTEROL 0.5-3(2.5)MG/3ML NEB HHN SCH ×4 (02:09→20:49)
[2020-07-17 04:00] VITALS: BP 148/57
[2020-07-17] MEDS: HYDROCODONE/ACETAMINOPHEN 10/325MG TABLET PO PRN ×2 (04:47→18:11)
[2020-07-17] MEDS: MORPHINE SULFATE 4 MG/ML CPJ (NOT FOR IM USE) IV PRN ×3 (05:51→21:00)
[2020-07-17] MEDS: METRONIDAZOLE 500 MG PREMIX 100 ML IV SCH (07:34)
[2020-07-17] MEDS: LEVOTHYROXINE SODIUM 25MCG TABLET PO SCH (07:34)
[2020-07-17] MEDS: METHYLPREDNISOLONE SOD SUCC 40 MG/ML VIAL IV SCH ×3 (07:36→17:20)
[2020-07-17 08:00] VITALS: BP 159/58
[2020-07-17] MEDS: FUROSEMIDE 40MG/4ML VIAL IVP SCH ×2 (08:26→17:20)
[2020-07-17 09:33] LABS: BASOPHILS % 0.5 % (0.0-2.0); EOSINOPHILS % 6.2 % (0.0-5.0); HEMATOCRIT. 22.4 % (42.0-52.0); HEMOGLOBIN. 7.8 g/dL (14.0-18.0); LYMPHOCYTES % 20.5 % (20.0-50.0); MEAN CORPUSCULAR HEMOGLOBIN 34.8 pg (28.0-32.0); MEAN CORPUSCULAR VOLUME 99.6 fL (80.0-94.0); MEAN PLATELET VOLUME 7.8 fl (7.4-10.4); MONOCYTES % 7.3 % (2.0-8.0); NEUTROPHILS % 65.5 % (40.0-76.0); PLATELET 51 x1000/uL (130-400); RED BLOOD CELL COUNT 2.25 mill/uL (4.7-6.1); RED CELL DISTRIBUTION WIDTH 18.1 % (11.6-14.6)
[2020-07-17 10:01] LABS: T4 FREE 1.04 ng/dL (0.76-1.46)
[2020-07-17 10:21] LABS: VITAMIN B12 SERUM 716 pg/mL (211-911)
[2020-07-17 10:29] LABS: FOLIC ACID (FOLATE) SERUM > 20.00 ng/mL (>5.38)
[2020-07-17] MEDS: BLOOD SUGAR DIAGNOSTIC STRIP TEST SCH ×3 (11:26→21:00)
[2020-07-17] MEDS: INSULIN LISPRO 100 UNITS/ML SUBCUT SCH ×3 (11:30→23:55)
[2020-07-17] MEDS ORDERED: DEXTROSE 50% WATER 50ML SYRINGE IV PRN (11:30)
[2020-07-17 12:00] VITALS: BP 160/64
[2020-07-17 16:00] VITALS: BP 154/65
[2020-07-17 20:00] VITALS: BP 158/86
[2020-07-17] MEDS: LACTULOSE 20G/30ML UDC PO SCH (23:53)
[2020-07-18] VITALS: BP 162/48
[2020-07-18] MEDS: METHYLPREDNISOLONE SOD SUCC 40 MG/ML VIAL IV SCH ×5 (00:28→23:40)
[2020-07-18] MEDS: OXYCODONE HCL/ACETAMINOPHEN 5/325MG TABLET PO PRN ×4 (00:29→20:58)
[2020-07-18] MEDS: IPRATROPIUM/ALBUTEROL 0.5-3(2.5)MG/3ML NEB HHN SCH ×4 (01:07→20:42)
[2020-07-18 04:00] VITALS: BP 148/50
[2020-07-18] MEDS: MORPHINE SULFATE 4 MG/ML CPJ (NOT FOR IM USE) IV PRN ×4 (04:53→23:41)
[2020-07-18] MEDS: LEVOTHYROXINE SODIUM 25MCG TABLET PO SCH (06:01)
[2020-07-18] MEDS: INSULIN LISPRO 100 UNITS/ML SUBCUT SCH ×4 (06:13→21:10)
[2020-07-18] MEDS: BLOOD SUGAR DIAGNOSTIC STRIP TEST SCH ×4 (06:13→16:45)
[2020-07-18 06:35] LABS: HEMATOCRIT. 22.7 % (42.0-52.0); HEMOGLOBIN. 7.8 g/dL (14.0-18.0); MEAN CORPUSCULAR HEMOGLOBIN 34.7 pg (28.0-32.0); MEAN CORPUSCULAR VOLUME 100.6 fL (80.0-94.0); MEAN PLATELET VOLUME 7.9 fl (7.4-10.4); RED BLOOD CELL COUNT 2.25 mill/uL (4.7-6.1); RED CELL DISTRIBUTION WIDTH 18.1 % (11.6-14.6)
[2020-07-18 07:53] LABS: PLATELET 50 x1000/uL (130-400)
[2020-07-18 08:00] VITALS: BP 146/55
[2020-07-18] MEDS: FUROSEMIDE 40MG/4ML VIAL IVP SCH ×2 (08:14→17:06)
[2020-07-18 09:07] LABS: G6PD RBC 2.31 x10E6/uL (4.14-5.80)
[2020-07-18] MEDS ORDERED: LACTULOSE 20G/30ML UDC PO NR (09:30)
[2020-07-18] MEDS ORDERED: SODIUM POLYSTYRENE SULFONATE 15 G/60 ML BOT PO NR (11:00)
[2020-07-18 12:00] VITALS: BP 168/55
[2020-07-18] MEDS: CLONIDINE 0.1MG TABLET PO PRN (12:38)
[2020-07-18 12:55] LABS: PLATELET ESTIMATE MARKEDLY DECREASED
[2020-07-18] MEDS ORDERED: NA PHOS,M-B/NA PHOS,DI-BA ENEMA 118ML PR NR (14:30)
[2020-07-18] MEDS ORDERED: BISACODYL 10MG SUPP PR PRN (15:45)
[2020-07-18 16:00] VITALS: BP 123/52
[2020-07-18 20:00] VITALS: BP 149/58
[2020-07-18] MEDS: LACTULOSE 20G/30ML UDC PO SCH (20:58)
[2020-07-19] VITALS: BP 169/67
[2020-07-19] MEDS: IPRATROPIUM/ALBUTEROL 0.5-3(2.5)MG/3ML NEB HHN SCH ×4 (00:37→20:03)
[2020-07-19] MEDS: OXYCODONE HCL/ACETAMINOPHEN 5/325MG TABLET PO PRN ×3 (03:41→17:06)
[2020-07-19 04:00] VITALS: BP 152/48
[2020-07-19 06:13] LABS: ANA IFA Negative (.)
[2020-07-19] MEDS: METHYLPREDNISOLONE SOD SUCC 40 MG/ML VIAL IV SCH ×3 (06:26→17:06)
[2020-07-19] MEDS: LEVOTHYROXINE SODIUM 25MCG TABLET PO SCH (06:26)
[2020-07-19] MEDS: BLOOD SUGAR DIAGNOSTIC STRIP TEST SCH ×4 (06:26→20:57)
[2020-07-19] MEDS: MORPHINE SULFATE 4 MG/ML CPJ (NOT FOR IM USE) IV PRN ×3 (06:42→23:16)
[2020-07-19] MEDS: INSULIN LISPRO 100 UNITS/ML SUBCUT SCH ×4 (06:53→21:02)
[2020-07-19 07:07] LABS: HEMATOCRIT. 23.8 % (42.0-52.0); MEAN CORPUSCULAR HEMOGLOBIN 33.9 pg (28.0-32.0); MEAN CORPUSCULAR VOLUME 100.9 fL (80.0-94.0); MEAN PLATELET VOLUME 7.8 fl (7.4-10.4); PLATELET 71 x1000/uL (130-400); RED BLOOD CELL COUNT 2.36 mill/uL (4.7-6.1); RED CELL DISTRIBUTION WIDTH 18.3 % (11.6-14.6)
[2020-07-19 08:00] VITALS: BP 159/65
[2020-07-19] MEDS: FUROSEMIDE 40MG/4ML VIAL IVP SCH ×2 (08:45→17:06)
[2020-07-19 09:09] LABS: ANTI-DNA DOUBLE STRANDED QUANT 21 IU/mL (0-9)
[2020-07-19 12:23] VITALS: BP 152/73
[2020-07-19 12:25] LABS: PLATELET ESTIMATE DECREASED
[2020-07-19 16:00] VITALS: BP 147/53
[2020-07-19] MEDS: DOCUSATE SODIUM 100MG CAPSULE PO SCH (17:06)
[2020-07-19 17:07] LABS: ANGIOTENSION CONVERTING ENZYME 36 U/L (14-82)
[2020-07-19 20:00] VITALS: BP 159/71
[2020-07-19] MEDS: SENNOSIDES/DOCUSATE SOD 8.6/50MG TABLET PO SCH (20:59)
[2020-07-19] MEDS: LACTULOSE 20G/30ML UDC PO SCH (20:59)
[2020-07-20] VITALS: BP 169/69
[2020-07-20 00:06] LABS: CLARITY URINE TURBID (CLEAR); COLOR URINE YELLOW (YELLOW); KETONES URINE NEGATIVE (NEGATIVE); LEUKOCYTE ESTERASE URINE 3+ (NEGATIVE); NITRITE URINE NEGATIVE (NEGATIVE); OCCULT BLOOD URINE 2+ (NEGATIVE); PROTEIN URINE 3+ (NEGATIVE); SPECIFIC GRAVITY URINE 1.016 (1.005-1.030); UROBILINOGEN URINE 0.2 E.U./dL (0.2-1.0)
[2020-07-20] MEDS: METHYLPREDNISOLONE SOD SUCC 40 MG/ML VIAL IV SCH ×5 (00:45→23:39)
[2020-07-20] MEDS: OXYCODONE HCL/ACETAMINOPHEN 5/325MG TABLET PO PRN ×4 (01:18→21:53)
[2020-07-20] MEDS: IPRATROPIUM/ALBUTEROL 0.5-3(2.5)MG/3ML NEB HHN SCH ×4 (01:38→20:36)
[2020-07-20 04:00] VITALS: BP 150/63
[2020-07-20] MEDS: MORPHINE SULFATE 4 MG/ML CPJ (NOT FOR IM USE) IV PRN ×3 (04:04→17:16)
[2020-07-20 06:23] LABS: ALDOLASE 2.9 U/L (3.3-10.3)
[2020-07-20] MEDS: BLOOD SUGAR DIAGNOSTIC STRIP TEST SCH ×4 (06:38→21:54)
[2020-07-20] MEDS: LEVOTHYROXINE SODIUM 25MCG TABLET PO SCH (06:42)
[2020-07-20] MEDS: INSULIN LISPRO 100 UNITS/ML SUBCUT SCH ×4 (06:43→21:54)
[2020-07-20 07:08] LABS: HEMATOCRIT. 24.7 % (42.0-52.0); HEMOGLOBIN. 8.3 g/dL (14.0-18.0); MEAN CORPUSCULAR HEMOGLOBIN 33.9 pg (28.0-32.0); MEAN CORPUSCULAR VOLUME 101.1 fL (80.0-94.0); MEAN PLATELET VOLUME 7.3 fl (7.4-10.4); PLATELET 71 x1000/uL (130-400); RED BLOOD CELL COUNT 2.44 mill/uL (4.7-6.1); RED CELL DISTRIBUTION WIDTH 18.7 % (11.6-14.6)
[2020-07-20 08:00] VITALS: BP 150/66
[2020-07-20] MEDS: POLYETHYLENE GLYCOL 3350 (17GM) 1 DOSE PACK PO SCH (08:37)
[2020-07-20] MEDS: DOCUSATE SODIUM 100MG CAPSULE PO SCH ×2 (08:37→17:09)
[2020-07-20] MEDS: FUROSEMIDE 40MG/4ML VIAL IVP SCH ×2 (08:37→17:09)
[2020-07-20] MEDS ORDERED: SODIUM POLYSTYRENE SULFONATE 15 G/60 ML BOT PO SCH (10:00)
[2020-07-20 12:00] VITALS: BP 128/46
[2020-07-20 13:10] LABS: ACTIN (SMOOTH MUSCLE) ANTIBODY 41 Units (0-19); ANTI-MYELOPEROXIDASE AB < 9.0 U/mL (0.0-9.0); ANTI-PROTEINASE 3 ABS 4.3 U/mL (0.0-3.5); ATYPICAL P-ANCA <1:20 titer (Neg:<1:20); CYTOPLASMIC C-ANCA <1:20 titer (Neg:<1:20); MITOCHONDRIAL M2 AB <20.0 Units (0.0-20.0); PERINUCLEAR P-ANCA <1:20 titer (Neg:<1:20); VITAMIN D 1-25 DIHYDROXY 7.4 pg/mL (19.9-79.3)
[2020-07-20 15:06] LABS: PLATELET ESTIMATE DECREASED
[2020-07-20 16:00] VITALS: BP 146/57
[2020-07-20] MEDS ORDERED: GUAIFENESIN 600MG ER TABLET PO PRN (17:00)
[2020-07-20 20:00] VITALS: BP 178/77
[2020-07-20] MEDS: SENNOSIDES/DOCUSATE SOD 8.6/50MG TABLET PO SCH (21:53)
[2020-07-20] MEDS: LACTULOSE 20G/30ML UDC PO SCH (21:53)
[2020-07-20] MEDS: CLONIDINE 0.1MG TABLET PO PRN (21:53)
[2020-07-21] VITALS (7 sets, daily range): BP systolic 111–181; BP diastolic 57–95
[2020-07-21] MEDS: IPRATROPIUM/ALBUTEROL 0.5-3(2.5)MG/3ML NEB HHN SCH ×4 (02:30→20:40)
[2020-07-21] MEDS: MORPHINE SULFATE 4 MG/ML CPJ (NOT FOR IM USE) IV PRN ×2 (02:56→07:43)
[2020-07-21] MEDS: OXYCODONE HCL/ACETAMINOPHEN 5/325MG TABLET PO PRN ×3 (05:25→19:58)
[2020-07-21] MEDS: CLONIDINE 0.1MG TABLET PO PRN (05:26)
[2020-07-21] MEDS: METHYLPREDNISOLONE SOD SUCC 40 MG/ML VIAL IV SCH ×3 (06:20→18:00)
[2020-07-21] MEDS: BLOOD SUGAR DIAGNOSTIC STRIP TEST SCH ×5 (06:20→21:00)
[2020-07-21] MEDS: LEVOTHYROXINE SODIUM 25MCG TABLET PO SCH (06:20)
[2020-07-21] MEDS: INSULIN LISPRO 100 UNITS/ML SUBCUT SCH ×4 (06:22→22:18)
[2020-07-21 07:58] LABS: HEMATOCRIT. 23.5 % (42.0-52.0); HEMOGLOBIN. 7.9 g/dL (14.0-18.0); MEAN CORPUSCULAR HEMOGLOBIN 34.4 pg (28.0-32.0); MEAN CORPUSCULAR VOLUME 101.9 fL (80.0-94.0); MEAN PLATELET VOLUME 8.3 fl (7.4-10.4); PLATELET 58 x1000/uL (130-400); RED BLOOD CELL COUNT 2.31 mill/uL (4.7-6.1); RED CELL DISTRIBUTION WIDTH 19.1 % (11.6-14.6)
[2020-07-21] MEDS: POLYETHYLENE GLYCOL 3350 (17GM) 1 DOSE PACK PO SCH (08:44)
[2020-07-21] MEDS: DOCUSATE SODIUM 100MG CAPSULE PO SCH ×2 (08:44→17:00)
[2020-07-21] MEDS: FUROSEMIDE 40MG/4ML VIAL IVP SCH (08:44)
[2020-07-21] MEDS: AMLODIPINE 10MG TABLET PO SCH (08:46)
[2020-07-21 13:02] LABS: PLATELET ESTIMATE DECREASED
[2020-07-21 15:08] LABS: G6PD QUANTITATIVE 422 (127-427)
[2020-07-21 19:09] LABS: HLA CLASS 1 ANTIBODY Negative (Negative); IIb/IIIa ANTIBODY Positive (Negative); Ib/IX ANTIBODY Negative (Negative)
[2020-07-21] MEDS: SENNOSIDES/DOCUSATE SOD 8.6/50MG TABLET PO SCH (21:00)
[2020-07-21] MEDS: LACTULOSE 20G/30ML UDC PO SCH (21:00)
[2020-07-22] VITALS: BP 146/65
[2020-07-22 04:00] VITALS: BP 157/73
[2020-07-22] MEDS: OXYCODONE HCL/ACETAMINOPHEN 5/325MG TABLET PO PRN (04:32)
[2020-07-22] MEDS: METHYLPREDNISOLONE SOD SUCC 40 MG/ML VIAL IV SCH ×5 (06:00→23:41)
[2020-07-22] MEDS: INSULIN LISPRO 100 UNITS/ML SUBCUT SCH ×4 (06:23→21:01)
[2020-07-22] MEDS: LEVOTHYROXINE SODIUM 25MCG TABLET PO SCH (06:23)
[2020-07-22] MEDS: BLOOD SUGAR DIAGNOSTIC STRIP TEST SCH ×4 (06:23→21:01)
[2020-07-22 06:28] LABS: EOSINOPHILS % 0.1 % (0.0-5.0); HEMATOCRIT. 24.5 % (42.0-52.0); HEMOGLOBIN. 8.4 g/dL (14.0-18.0); LYMPHOCYTES % 11.1 % (20.0-50.0); MEAN CORPUSCULAR VOLUME 102.4 fL (80.0-94.0); MEAN PLATELET VOLUME 8.1 fl (7.4-10.4); MONOCYTES % 7.5 % (2.0-8.0); NEUTROPHILS % 81.3 % (40.0-76.0); PLATELET 65 x1000/uL (130-400); RED CELL DISTRIBUTION WIDTH 18.8 % (11.6-14.6)
[2020-07-22] MEDS: IPRATROPIUM/ALBUTEROL 0.5-3(2.5)MG/3ML NEB HHN SCH ×4 (07:39→20:59)
[2020-07-22 08:25] VITALS: BP 166/72
[2020-07-22] MEDS: DOCUSATE SODIUM 100MG CAPSULE PO SCH ×2 (08:32→16:47)
[2020-07-22] MEDS: FUROSEMIDE 40MG TABLET PO SCH (08:32)
[2020-07-22] MEDS: POLYETHYLENE GLYCOL 3350 (17GM) 1 DOSE PACK PO SCH (08:33)
[2020-07-22] MEDS: AMLODIPINE 10MG TABLET PO SCH (08:33)
[2020-07-22] MEDS: MORPHINE SULFATE 4 MG/ML CPJ (NOT FOR IM USE) IV PRN ×3 (11:30→21:00)
[2020-07-22 12:00] VITALS: BP 154/59
[2020-07-22] MEDS ORDERED: SORBITOL 70% SOLN 30ML PO NR (16:15)
[2020-07-22 16:20] VITALS: BP 147/71
[2020-07-22 20:00] VITALS: BP 159/80
[2020-07-22] MEDS: SENNOSIDES/DOCUSATE SOD 8.6/50MG TABLET PO SCH (20:58)
[2020-07-22] MEDS: LACTULOSE 20G/30ML UDC PO SCH (20:59)
[2020-07-23] VITALS: BP 143/74
[2020-07-23] MEDS: IPRATROPIUM/ALBUTEROL 0.5-3(2.5)MG/3ML NEB HHN SCH ×3 (01:27→21:27)
[2020-07-23] MEDS: OXYCODONE HCL/ACETAMINOPHEN 5/325MG TABLET PO PRN ×2 (02:07→08:34)
[2020-07-23 04:00] VITALS: BP 148/67
[2020-07-23] MEDS: MORPHINE SULFATE 4 MG/ML CPJ (NOT FOR IM USE) IV PRN (05:14)
[2020-07-23] MEDS: LEVOTHYROXINE SODIUM 25MCG TABLET PO SCH (06:15)
[2020-07-23] MEDS: METHYLPREDNISOLONE SOD SUCC 40 MG/ML VIAL IV SCH ×4 (06:15→23:28)
[2020-07-23] MEDS: INSULIN LISPRO 100 UNITS/ML SUBCUT SCH ×4 (06:15→20:04)
[2020-07-23] MEDS: BLOOD SUGAR DIAGNOSTIC STRIP TEST SCH ×4 (06:16→20:04)
[2020-07-23 06:47] LABS: HEMATOCRIT. 26.6 % (42.0-52.0); HEMOGLOBIN. 9.2 g/dL (14.0-18.0); MEAN CORPUSCULAR HEMOGLOBIN 35.1 pg (28.0-32.0); MEAN CORPUSCULAR VOLUME 102.2 fL (80.0-94.0); MEAN PLATELET VOLUME 8.5 fl (7.4-10.4); PLATELET 63 x1000/uL (130-400); RED BLOOD CELL COUNT 2.61 mill/uL (4.7-6.1); RED CELL DISTRIBUTION WIDTH 19.1 % (11.6-14.6)
[2020-07-23 08:22] VITALS: BP 136/66
[2020-07-23] MEDS: ZINC SULFATE 220 MG ( 50 ) CAPSULE PO SCH (08:33)
[2020-07-23] MEDS: ASCORBIC ACID 500 MG TABLET PO SCH (08:33)
[2020-07-23] MEDS: AMLODIPINE 10MG TABLET PO SCH (08:33)
[2020-07-23] MEDS: DOCUSATE SODIUM 100MG CAPSULE PO SCH ×2 (08:33→18:18)
[2020-07-23] MEDS: FUROSEMIDE 40MG TABLET PO SCH (08:33)
[2020-07-23] MEDS: POLYETHYLENE GLYCOL 3350 (17GM) 1 DOSE PACK PO SCH (08:34)
[2020-07-23] MEDS: LACTULOSE 20G/30ML UDC PO SCH ×2 (08:34→20:03)
[2020-07-23] MEDS ORDERED: SODIUM POLYSTYRENE SULFONATE 15 G/60 ML BOT PO NR (11:00)
[2020-07-23 12:00] VITALS: BP 143/66
[2020-07-23 13:27] LABS: PLATELET ESTIMATE DECREASED
[2020-07-23] MEDS: HYDROMORPHONE HCL/PF 2MG/ML CPJ IV PRN ×3 (13:49→22:32)
[2020-07-23 16:00] VITALS: BP 126/75
[2020-07-23 20:00] VITALS: BP 145/77
[2020-07-23] MEDS: SENNOSIDES/DOCUSATE SOD 8.6/50MG TABLET PO SCH (20:03)
[2020-07-24] VITALS (7 sets, daily range): BP systolic 152–177; BP diastolic 69–90
[2020-07-24] MEDS: CLONIDINE 0.1MG TABLET PO PRN ×2 (00:23→20:48)
[2020-07-24] MEDS: IPRATROPIUM/ALBUTEROL 0.5-3(2.5)MG/3ML NEB HHN SCH ×2 (02:34→18:00)
[2020-07-24] MEDS: OXYCODONE HCL/ACETAMINOPHEN 5/325MG TABLET PO PRN ×2 (02:55→12:04)
[2020-07-24] MEDS: HYDROMORPHONE HCL/PF 2MG/ML CPJ IV PRN ×6 (04:00→23:15)
[2020-07-24] MEDS: LEVOTHYROXINE SODIUM 25MCG TABLET PO SCH (05:45)
[2020-07-24] MEDS: METHYLPREDNISOLONE SOD SUCC 40 MG/ML VIAL IV SCH ×4 (05:46→23:22)
[2020-07-24] MEDS: BLOOD SUGAR DIAGNOSTIC STRIP TEST SCH ×4 (06:15→20:37)
[2020-07-24] MEDS: INSULIN LISPRO 100 UNITS/ML SUBCUT SCH ×4 (06:17→20:54)
[2020-07-24 07:51] LABS: HEMATOCRIT. 27.7 % (42.0-52.0); HEMOGLOBIN. 9.8 g/dL (14.0-18.0); MEAN CORPUSCULAR HEMOGLOBIN 35.6 pg (28.0-32.0); MEAN CORPUSCULAR VOLUME 101.3 fL (80.0-94.0); MEAN PLATELET VOLUME 8.5 fl (7.4-10.4); PLATELET 75 x1000/uL (130-400); RED BLOOD CELL COUNT 2.74 mill/uL (4.7-6.1); RED CELL DISTRIBUTION WIDTH 18.9 % (11.6-14.6)
[2020-07-24] MEDS: AMLODIPINE 10MG TABLET PO SCH (08:12)
[2020-07-24] MEDS: FUROSEMIDE 40MG TABLET PO SCH (08:12)
[2020-07-24] MEDS: LACTULOSE 20G/30ML UDC PO SCH ×2 (08:12→20:48)
[2020-07-24] MEDS: DOCUSATE SODIUM 100MG CAPSULE PO SCH ×2 (08:12→17:58)
[2020-07-24] MEDS: ASCORBIC ACID 500 MG TABLET PO SCH (08:12)
[2020-07-24] MEDS: ZINC SULFATE 220 MG ( 50 ) CAPSULE PO SCH (08:12)
[2020-07-24] MEDS: POLYETHYLENE GLYCOL 3350 (17GM) 1 DOSE PACK PO SCH (09:00)
[2020-07-24] MEDS ORDERED: SODIUM POLYSTYRENE SULFONATE 15 G/60 ML BOT PO NR (12:30)
[2020-07-24 13:02] LABS: PLATELET ESTIMATE DECREASED
[2020-07-24] MEDS: SENNOSIDES/DOCUSATE SOD 8.6/50MG TABLET PO SCH (20:48)
[2020-07-25] VITALS (7 sets, daily range): BP systolic 139–180; BP diastolic 52–82
[2020-07-25] MEDS: IPRATROPIUM/ALBUTEROL 0.5-3(2.5)MG/3ML NEB HHN SCH ×4 (01:30→20:15)
[2020-07-25] MEDS: HYDROMORPHONE HCL/PF 2MG/ML CPJ IV PRN ×5 (04:56→22:20)
[2020-07-25] MEDS: METHYLPREDNISOLONE SOD SUCC 40 MG/ML VIAL IV SCH ×4 (06:18→23:25)
[2020-07-25] MEDS: LEVOTHYROXINE SODIUM 25MCG TABLET PO SCH (06:18)
[2020-07-25] MEDS: BLOOD SUGAR DIAGNOSTIC STRIP TEST SCH ×4 (06:26→21:12)
[2020-07-25] MEDS: INSULIN LISPRO 100 UNITS/ML SUBCUT SCH ×4 (06:32→21:13)
[2020-07-25 06:46] LABS: HEMATOCRIT. 26.1 % (42.0-52.0); HEMOGLOBIN. 9.1 g/dL (14.0-18.0); MEAN CORPUSCULAR HEMOGLOBIN 34.9 pg (28.0-32.0); MEAN CORPUSCULAR VOLUME 100.3 fL (80.0-94.0); PLATELET 66 x1000/uL (130-400); RED CELL DISTRIBUTION WIDTH 18.9 % (11.6-14.6)
[2020-07-25] MEDS: POLYETHYLENE GLYCOL 3350 (17GM) 1 DOSE PACK PO SCH (08:12)
[2020-07-25] MEDS: LACTULOSE 20G/30ML UDC PO SCH ×2 (08:12→21:11)
[2020-07-25] MEDS: DOCUSATE SODIUM 100MG CAPSULE PO SCH ×2 (08:12→17:56)
[2020-07-25] MEDS: ZINC SULFATE 220 MG ( 50 ) CAPSULE PO SCH (08:12)
[2020-07-25] MEDS: OXYCODONE HCL/ACETAMINOPHEN 5/325MG TABLET PO PRN ×2 (08:13→16:11)
[2020-07-25] MEDS: AMLODIPINE 10MG TABLET PO SCH (08:13)
[2020-07-25] MEDS: FUROSEMIDE 40MG TABLET PO SCH (08:13)
[2020-07-25] MEDS: ASCORBIC ACID 500 MG TABLET PO SCH (08:13)
[2020-07-25 12:41] LABS: PLATELET ESTIMATE DECREASED
[2020-07-25] MEDS ORDERED: INSULIN GLARGINE UD 100 UNITS/ML SYR SUBCUT SCH (13:00)
[2020-07-25] MEDS: SENNOSIDES/DOCUSATE SOD 8.6/50MG TABLET PO SCH (21:11)
[2020-07-26] VITALS: BP 148/79
[2020-07-26] MEDS: IPRATROPIUM/ALBUTEROL 0.5-3(2.5)MG/3ML NEB HHN SCH ×4 (02:15→20:40)
[2020-07-26] MEDS: HYDROMORPHONE HCL/PF 2MG/ML CPJ IV PRN ×4 (02:24→18:25)
[2020-07-26 04:00] VITALS: BP 153/83
[2020-07-26] MEDS: BLOOD SUGAR DIAGNOSTIC STRIP TEST SCH ×4 (06:14→21:42)
[2020-07-26] MEDS: METHYLPREDNISOLONE SOD SUCC 40 MG/ML VIAL IV SCH ×3 (06:20→18:12)
[2020-07-26] MEDS: LEVOTHYROXINE SODIUM 25MCG TABLET PO SCH (06:21)
[2020-07-26 06:27] LABS: HEMOGLOBIN. 9.8 g/dL (14.0-18.0); MEAN CORPUSCULAR HEMOGLOBIN 34.4 pg (28.0-32.0); MEAN CORPUSCULAR VOLUME 101.7 fL (80.0-94.0); MEAN PLATELET VOLUME 9.1 fl (7.4-10.4); PLATELET 67 x1000/uL (130-400); RED BLOOD CELL COUNT 2.85 mill/uL (4.7-6.1)
[2020-07-26] MEDS: INSULIN LISPRO 100 UNITS/ML SUBCUT SCH ×4 (06:33→21:49)
[2020-07-26 08:00] VITALS: BP 165/69
[2020-07-26] MEDS: POLYETHYLENE GLYCOL 3350 (17GM) 1 DOSE PACK PO SCH (09:06)
[2020-07-26] MEDS: LACTULOSE 20G/30ML UDC PO SCH ×3 (09:06→21:49)
[2020-07-26] MEDS: CLONIDINE 0.1MG TABLET PO PRN (09:07)
[2020-07-26] MEDS: ZINC SULFATE 220 MG ( 50 ) CAPSULE PO SCH (09:07)
[2020-07-26] MEDS: DOCUSATE SODIUM 100MG CAPSULE PO SCH ×2 (09:07→18:12)
[2020-07-26] MEDS: AMLODIPINE 10MG TABLET PO SCH (09:08)
[2020-07-26] MEDS: OXYCODONE HCL/ACETAMINOPHEN 5/325MG TABLET PO PRN ×2 (09:08→16:15)
[2020-07-26] MEDS: FUROSEMIDE 40MG TABLET PO SCH (09:08)
[2020-07-26] MEDS: ASCORBIC ACID 500 MG TABLET PO SCH (09:09)
[2020-07-26] MEDS ORDERED: INSULIN GLARGINE UD 100 UNITS/ML SYR SUBCUT SCH (10:00)
[2020-07-26 11:57] LABS: PLATELET ESTIMATE DECREASED
[2020-07-26 12:00] VITALS: BP 144/72
[2020-07-26] MEDS: PANTOPRAZOLE SODIUM 40 MG/VIAL IV SCH (12:50)
[2020-07-26 16:00] VITALS: BP 148/75
[2020-07-26 20:00] VITALS: BP 140/73
[2020-07-26] MEDS: SENNOSIDES/DOCUSATE SOD 8.6/50MG TABLET PO SCH (21:48)
[2020-07-26] MEDS: AZATHIOPRINE 50MG TABLET PO SCH (21:49)
[2020-07-27] VITALS: BP 168/86
[2020-07-27] MEDS: HYDROMORPHONE HCL/PF 2MG/ML CPJ IV PRN ×5 (00:22→21:07)
[2020-07-27] MEDS: METHYLPREDNISOLONE SOD SUCC 125 MG/2 ML VIAL IV SCH ×5 (00:22→22:39)
[2020-07-27] MEDS: IPRATROPIUM/ALBUTEROL 0.5-3(2.5)MG/3ML NEB HHN SCH ×5 (02:00→20:19)
[2020-07-27] MEDS: OXYCODONE HCL/ACETAMINOPHEN 5/325MG TABLET PO PRN ×3 (02:57→20:34)
[2020-07-27 04:00] VITALS: BP 140/73
[2020-07-27] MEDS: LEVOTHYROXINE SODIUM 25MCG TABLET PO SCH (06:25)
[2020-07-27] MEDS: INSULIN LISPRO 100 UNITS/ML SUBCUT SCH ×4 (06:28→22:15)
[2020-07-27 06:36] LABS: HEMATOCRIT. 27.3 % (42.0-52.0); HEMOGLOBIN. 9.2 g/dL (14.0-18.0); MEAN CORPUSCULAR HEMOGLOBIN 34.3 pg (28.0-32.0); MEAN CORPUSCULAR VOLUME 101.8 fL (80.0-94.0); PLATELET 57 x1000/uL (130-400); RED BLOOD CELL COUNT 2.69 mill/uL (4.7-6.1); RED CELL DISTRIBUTION WIDTH 19.2 % (11.6-14.6)
[2020-07-27] MEDS: ONDANSETRON HCL 4MG/2ML INJ IV PRN ×2 (06:36→21:01)
[2020-07-27] MEDS: BLOOD SUGAR DIAGNOSTIC STRIP TEST SCH ×4 (06:43→21:00)
[2020-07-27 08:00] VITALS: BP 152/84
[2020-07-27] MEDS: ASCORBIC ACID 500 MG TABLET PO SCH (08:48)
[2020-07-27] MEDS: AMLODIPINE 10MG TABLET PO SCH (08:49)
[2020-07-27] MEDS: AZATHIOPRINE 50MG TABLET PO SCH ×2 (08:49→16:35)
[2020-07-27] MEDS: ZINC SULFATE 220 MG ( 50 ) CAPSULE PO SCH (08:49)
[2020-07-27] MEDS: DOCUSATE SODIUM 100MG CAPSULE PO SCH ×2 (08:49→16:35)
[2020-07-27] MEDS: POLYETHYLENE GLYCOL 3350 (17GM) 1 DOSE PACK PO SCH (08:50)
[2020-07-27] MEDS: LACTULOSE 20G/30ML UDC PO SCH ×2 (08:50→22:14)
[2020-07-27] MEDS: PANTOPRAZOLE SODIUM 40 MG/VIAL IV SCH (08:50)
[2020-07-27] MEDS: SODIUM CHLORIDE 0.45% 1,000 ML IV SCH (10:45)
[2020-07-27 12:00] VITALS: BP 144/69
[2020-07-27 15:04] LABS: PLATELET ESTIMATE DECREASED
[2020-07-27 16:00] VITALS: BP 119/76
[2020-07-27 20:00] VITALS: BP 121/64
[2020-07-27] MEDS: SENNOSIDES/DOCUSATE SOD 8.6/50MG TABLET PO SCH (22:14)
[2020-07-27] MEDS: INSULIN GLARGINE UD 100 UNITS/ML SYR SUBCUT SCH (22:54)
[2020-07-28] VITALS (7 sets, daily range): BP systolic 96–139; BP diastolic 55–80
[2020-07-28] MEDS: IPRATROPIUM/ALBUTEROL 0.5-3(2.5)MG/3ML NEB HHN SCH ×3 (01:45→21:05)
[2020-07-28] MEDS: ONDANSETRON HCL 4MG/2ML INJ IV PRN ×2 (04:59→12:18)
[2020-07-28] MEDS: HYDROMORPHONE HCL/PF 2MG/ML CPJ IV PRN ×3 (05:00→19:21)
[2020-07-28] MEDS: INSULIN LISPRO 100 UNITS/ML SUBCUT SCH ×4 (06:30→21:07)
[2020-07-28] MEDS: METHYLPREDNISOLONE SOD SUCC 125 MG/2 ML VIAL IV SCH ×3 (06:30→18:00)
[2020-07-28] MEDS: LEVOTHYROXINE SODIUM 25MCG TABLET PO SCH (06:30)
[2020-07-28] MEDS: BLOOD SUGAR DIAGNOSTIC STRIP TEST SCH ×4 (07:37→21:07)
[2020-07-28] MEDS: DOCUSATE SODIUM 100MG CAPSULE PO SCH ×2 (09:00→17:00)
[2020-07-28] MEDS: LACTULOSE 20G/30ML UDC PO SCH ×4 (09:00→21:13)
[2020-07-28] MEDS: POLYETHYLENE GLYCOL 3350 (17GM) 1 DOSE PACK PO SCH (09:00)
[2020-07-28] MEDS: ZINC SULFATE 220 MG ( 50 ) CAPSULE PO SCH (10:00)
[2020-07-28] MEDS: ASCORBIC ACID 500 MG TABLET PO SCH (10:00)
[2020-07-28] MEDS: AZATHIOPRINE 50MG TABLET PO SCH ×2 (10:00→17:00)
[2020-07-28] MEDS: DILTIAZEM HCL 60MG TABLET PO SCH ×3 (10:01→21:05)
[2020-07-28] MEDS: PANTOPRAZOLE SODIUM 40 MG/VIAL IV SCH (10:02)
[2020-07-28] MEDS: SODIUM CHLORIDE 0.45% 1,000 ML IV SCH (10:04)
[2020-07-28] MEDS: INSULIN GLARGINE UD 100 UNITS/ML SYR SUBCUT SCH ×2 (10:11→21:06)
[2020-07-28 11:27] LABS: HEMATOCRIT. 27.2 % (42.0-52.0); HEMOGLOBIN. 9.1 g/dL (14.0-18.0); MEAN CORPUSCULAR HEMOGLOBIN 34.7 pg (28.0-32.0); MEAN CORPUSCULAR VOLUME 103.3 fL (80.0-94.0); MEAN PLATELET VOLUME 9.7 fl (7.4-10.4); PLATELET 59 x1000/uL (130-400); RED BLOOD CELL COUNT 2.63 mill/uL (4.7-6.1); RED CELL DISTRIBUTION WIDTH 19.2 % (11.6-14.6)
[2020-07-28 11:31] LABS: PHOSPHORUS 7.1 mg/dL (2.5-4.9)
[2020-07-28] MEDS: LORAZEPAM 2MG/ML CPJ IV PRN ×2 (12:18→19:20)
[2020-07-28 13:34] LABS: PLATELET ESTIMATE DECREASED
[2020-07-28] MEDS: FUROSEMIDE 40MG/4ML VIAL IVP SCH (14:03)
[2020-07-28] MEDS: SENNOSIDES/DOCUSATE SOD 8.6/50MG TABLET PO SCH ×2 (21:05→21:13)
[2020-07-29] VITALS (9 sets, daily range): BP systolic 107–143; BP diastolic 66–104
[2020-07-29] MEDS: IPRATROPIUM/ALBUTEROL 0.5-3(2.5)MG/3ML NEB HHN SCH (01:05)
[2020-07-29] MEDS: LORAZEPAM 2MG/ML CPJ IV PRN ×2 (01:57→12:36)
[2020-07-29] MEDS: HYDROMORPHONE HCL/PF 2MG/ML CPJ IV PRN ×3 (01:57→16:00)
[2020-07-29] MEDS: METHYLPREDNISOLONE SOD SUCC 125 MG/2 ML VIAL IV SCH ×4 (05:07→17:31)
[2020-07-29] MEDS: DILTIAZEM HCL 60MG TABLET PO SCH ×3 (05:14→21:07)
[2020-07-29 06:12] LABS: HEMATOCRIT. 34.7 % (42.0-52.0); HEMOGLOBIN. 11.4 g/dL (14.0-18.0); MEAN CORPUSCULAR HEMOGLOBIN 33.7 pg (28.0-32.0); MEAN CORPUSCULAR VOLUME 102.4 fL (80.0-94.0); MEAN PLATELET VOLUME 9.5 fl (7.4-10.4); RED BLOOD CELL COUNT 3.39 mill/uL (4.7-6.1); RED CELL DISTRIBUTION WIDTH 19.6 % (11.6-14.6)
[2020-07-29 06:37] LABS: PLATELET 50 x1000/uL (130-400)
[2020-07-29] MEDS: BLOOD SUGAR DIAGNOSTIC STRIP TEST SCH ×4 (07:30→21:06)
[2020-07-29] MEDS: POLYETHYLENE GLYCOL 3350 (17GM) 1 DOSE PACK PO SCH (09:00)
[2020-07-29] MEDS: DOCUSATE SODIUM 100MG CAPSULE PO SCH ×2 (09:00→17:00)
[2020-07-29] MEDS: ASCORBIC ACID 500 MG TABLET PO SCH (09:14)
[2020-07-29] MEDS: AZATHIOPRINE 50MG TABLET PO SCH ×2 (09:15→17:00)
[2020-07-29] MEDS: LEVOTHYROXINE SODIUM 25MCG TABLET PO SCH (09:15)
[2020-07-29] MEDS: PANTOPRAZOLE SODIUM 40 MG/VIAL IV SCH (09:15)
[2020-07-29] MEDS: FUROSEMIDE 40MG/4ML VIAL IVP SCH (09:15)
[2020-07-29] MEDS: ZINC SULFATE 220 MG ( 50 ) CAPSULE PO SCH (09:15)
[2020-07-29] MEDS: SODIUM CHLORIDE 0.45% 1,000 ML IV SCH (09:16)
[2020-07-29] MEDS: INSULIN LISPRO 100 UNITS/ML SUBCUT SCH ×4 (09:17→21:23)
[2020-07-29] MEDS: INSULIN GLARGINE UD 100 UNITS/ML SYR SUBCUT SCH ×2 (10:00→21:24)
[2020-07-29] MEDS ORDERED: SODIUM POLYSTYRENE SULFONATE 15 G/60 ML BOT PO NR (10:30)
[2020-07-29] MEDS ORDERED: AMIODARONE HCL 150 MG in DEXT 5% WATER 100 ML IV NR (12:30)
[2020-07-29] MEDS: IPRATROPIUM BROMIDE (0.02%) 0.5MG/2.5ML NEB HHN SCH ×2 (13:30→19:30)
[2020-07-29] MEDS: METOCLOPRAMIDE HCL 10MG/2ML VIAL IV SCH ×2 (15:01→21:22)
[2020-07-29 16:00] LABS: PLATELET ESTIMATE MARKEDLY DECREASED
[2020-07-29] MEDS: AMIODARONE HCL 900 MG in DEXT 5% WATER 482 ML IV SCH (18:46)
[2020-07-29] MEDS ORDERED: DILTIAZEM HCL 5MG/ML 5ML VIAL IV NR (19:30)
[2020-07-29] MEDS: LACTULOSE 20G/30ML UDC PO SCH (21:00)
[2020-07-30] VITALS (8 sets, daily range): BP systolic 109–148; BP diastolic 64–95
[2020-07-30] MEDS: LORAZEPAM 2MG/ML CPJ IV PRN ×2 (00:33→10:24)
[2020-07-30] MEDS: METHYLPREDNISOLONE SOD SUCC 125 MG/2 ML VIAL IV SCH ×4 (00:33→18:24)
[2020-07-30] MEDS: IPRATROPIUM BROMIDE (0.02%) 0.5MG/2.5ML NEB HHN SCH ×4 (02:24→21:37)
[2020-07-30] MEDS: DILTIAZEM HCL 5MG/ML 5ML VIAL IV PRN ×4 (04:12→22:13)
[2020-07-30] MEDS: METOCLOPRAMIDE HCL 10MG/2ML VIAL IV SCH ×3 (05:57→21:43)
[2020-07-30] MEDS: DILTIAZEM HCL 60MG TABLET PO SCH ×4 (05:58→22:00)
[2020-07-30] MEDS: LEVOTHYROXINE SODIUM 25MCG TABLET PO SCH (07:30)
[2020-07-30] MEDS: BLOOD SUGAR DIAGNOSTIC STRIP TEST SCH ×4 (07:32→21:47)
[2020-07-30] MEDS: PANTOPRAZOLE SODIUM 40 MG/VIAL IV SCH (08:47)
[2020-07-30] MEDS: ASCORBIC ACID 500 MG TABLET PO SCH (08:47)
[2020-07-30] MEDS: OXYCODONE HCL/ACETAMINOPHEN 5/325MG TABLET PO PRN (08:48)
[2020-07-30] MEDS: AZATHIOPRINE 50MG TABLET PO SCH ×2 (08:48→17:00)
[2020-07-30] MEDS: DOCUSATE SODIUM 100MG CAPSULE PO SCH ×2 (08:49→17:00)
[2020-07-30] MEDS: LACTULOSE 20G/30ML UDC PO SCH ×3 (08:49→21:42)
[2020-07-30] MEDS: POLYETHYLENE GLYCOL 3350 (17GM) 1 DOSE PACK PO SCH (08:49)
[2020-07-30] MEDS: ZINC SULFATE 220 MG ( 50 ) CAPSULE PO SCH (08:49)
[2020-07-30] MEDS: INSULIN LISPRO 100 UNITS/ML SUBCUT SCH ×4 (08:53→21:59)
[2020-07-30] MEDS: INSULIN GLARGINE UD 100 UNITS/ML SYR SUBCUT SCH ×2 (10:11→22:04)
[2020-07-30] MEDS ORDERED: LIDOCAINE HCL 1% 20ML VIAL (Pyxis) INJ ONE (10:17)
[2020-07-30 10:26] LABS: HEMATOCRIT. 27.1 % (42.0-52.0); HEMOGLOBIN. 9.4 g/dL (14.0-18.0); MEAN CORPUSCULAR VOLUME 101.1 fL (80.0-94.0); MEAN PLATELET VOLUME 10.1 fl (7.4-10.4); PLATELET 52 x1000/uL (130-400); RED BLOOD CELL COUNT 2.68 mill/uL (4.7-6.1); RED CELL DISTRIBUTION WIDTH 19.1 % (11.6-14.6)
[2020-07-30] MEDS: HYDROMORPHONE HCL/PF 2MG/ML CPJ IV PRN (11:36)
[2020-07-30] MEDS: DILTIAZEM HCL 5MG/ML 5ML VIAL IV NR ×2 (12:27→13:03)
[2020-07-30 19:06] LABS: PLATELET ESTIMATE DECREASED
[2020-07-30] MEDS: SENNOSIDES/DOCUSATE SOD 8.6/50MG TABLET PO SCH ×2 (21:00→21:42)
[2020-07-31] VITALS (7 sets, daily range): BP systolic 104–150; BP diastolic 62–133
[2020-07-31] MEDS: METHYLPREDNISOLONE SOD SUCC 125 MG/2 ML VIAL IV SCH ×4 (00:42→17:25)
[2020-07-31] MEDS: IPRATROPIUM BROMIDE (0.02%) 0.5MG/2.5ML NEB HHN SCH ×4 (02:20→20:48)
[2020-07-31] MEDS: DILTIAZEM HCL 5MG/ML 5ML VIAL IV PRN ×2 (03:03→07:51)
[2020-07-31] MEDS: HYDROMORPHONE HCL/PF 2MG/ML CPJ IV PRN (03:04)
[2020-07-31] MEDS: METOCLOPRAMIDE HCL 10MG/2ML VIAL IV SCH ×3 (05:25→22:00)
[2020-07-31] MEDS: DILTIAZEM HCL 60MG TABLET PO SCH ×3 (05:30→21:37)
[2020-07-31] MEDS: LACTULOSE 20G/30ML UDC PO SCH ×3 (05:31→21:37)
[2020-07-31 05:54] LABS: HEMATOCRIT. 25.5 % (42.0-52.0); HEMOGLOBIN. 8.5 g/dL (14.0-18.0); MEAN CORPUSCULAR HEMOGLOBIN 33.8 pg (28.0-32.0); MEAN CORPUSCULAR VOLUME 101.1 fL (80.0-94.0); RED BLOOD CELL COUNT 2.52 mill/uL (4.7-6.1); RED CELL DISTRIBUTION WIDTH 19.2 % (11.6-14.6)
[2020-07-31 06:17] LABS: INR 1.4; PROTHROMBIN TIME 14.5 sec (9.6-11.0)
[2020-07-31 06:24] LABS: PLATELET 37 x1000/uL (130-400)
[2020-07-31] MEDS: LEVOTHYROXINE SODIUM 25MCG TABLET PO SCH (07:58)
[2020-07-31] MEDS: INSULIN LISPRO 100 UNITS/ML SUBCUT SCH ×4 (08:00→21:00)
[2020-07-31] MEDS: BLOOD SUGAR DIAGNOSTIC STRIP TEST SCH ×4 (08:09→21:00)
[2020-07-31] MEDS: AZATHIOPRINE 50MG TABLET PO SCH ×2 (09:00→16:18)
[2020-07-31] MEDS: DOCUSATE SODIUM 100MG CAPSULE PO SCH ×2 (09:00→16:18)
[2020-07-31 09:07] LABS: ANA IFA Negative (.)
[2020-07-31] MEDS: PANTOPRAZOLE SODIUM 40 MG/VIAL IV SCH (09:58)
[2020-07-31] MEDS ORDERED: DILTIAZEM HCL 5MG/ML 5ML VIAL IV NR (10:45)
[2020-07-31] MEDS ORDERED: DIGOXIN 500MCG/2ML AMP IV NR (10:45)
[2020-07-31] MEDS: INSULIN GLARGINE UD 100 UNITS/ML SYR SUBCUT SCH ×2 (10:58→21:47)
[2020-07-31 11:04] LABS: BG BASE EXCESS -3.5 mmol/L (-2.0-2.0); BG CARBOXYHEMOGLOBIN 0.3 % (0.5-1.5); BG DEOXYHEMOGLOBIN 5.2 % (0.0-5.0); BG FRACTION INSPIRED OXYGEN 28; BG HCO3 ACT 20.5 mmol/L (22.0-26.0); BG METHEMOGLOBIN 0.4 % (0.0-1.5); BG OXYGEN SATURATION 94.8 % (92.0-98.5); BG OXYHEMOGLOBIN 94.1 % (94.0-97.0); BG PCO2 32.9 mmHg (35.0-45.0); BG PH 7.412 (7.350-7.450); BG PO2 77.7 mmHg (75.0-100.0); BG SAMPLE SITE RIGHT RADIAL; BG TOTAL HEMOGLOBIN 9.5 g/dL (12.0-18.0); BG VENT MODE NASAL CANNULA
[2020-07-31] MEDS ORDERED: AMIODARONE HCL 150 MG in DEXT 5% WATER 100 ML IV SCH (11:30)
[2020-07-31] MEDS: POLYETHYLENE GLYCOL 3350 (17GM) 1 DOSE PACK PO SCH (11:34)
[2020-07-31] MEDS: ZINC SULFATE 220 MG ( 50 ) CAPSULE PO SCH (11:35)
[2020-07-31] MEDS: ASCORBIC ACID 500 MG TABLET PO SCH (11:36)
[2020-07-31] MEDS: DEXT 5%/0.45% NACL 1000ML 1,000 ML IV SCH (11:52)
[2020-07-31] MEDS ORDERED: SODIUM POLYSTYRENE SULFONATE 15 G/60 ML BOT PO NR (12:00)
[2020-07-31 12:43] LABS: PLATELET ESTIMATE MARKEDLY DECREASED
[2020-07-31] MEDS ORDERED: AMIODARONE HCL 900 MG in DEXT 5% WATER 482 ML IV PRN (16:15)
[2020-07-31] MEDS: AMIODARONE HCL 900 MG in DEXT 5% WATER 482 ML IV SCH (17:20)
[2020-07-31] MEDS: SENNOSIDES/DOCUSATE SOD 8.6/50MG TABLET PO SCH (21:00)
[2020-08-01] VITALS (18 sets, daily range): BP systolic 94–159; BP diastolic 52–98
[2020-08-01] MEDS: METHYLPREDNISOLONE SOD SUCC 125 MG/2 ML VIAL IV SCH ×4 (00:24→17:47)
[2020-08-01] MEDS: IPRATROPIUM BROMIDE (0.02%) 0.5MG/2.5ML NEB HHN SCH ×4 (01:51→20:45)
[2020-08-01] MEDS: DILTIAZEM HCL 5MG/ML 5ML VIAL IV PRN ×3 (02:43→10:44)
[2020-08-01] MEDS: HYDROMORPHONE HCL/PF 2MG/ML CPJ IV PRN (02:44)
[2020-08-01] MEDS: METOCLOPRAMIDE HCL 10MG/2ML VIAL IV SCH ×3 (06:00→21:04)
[2020-08-01] MEDS: DILTIAZEM HCL 60MG TABLET PO SCH (06:22)
[2020-08-01] MEDS: LEVOTHYROXINE SODIUM 25MCG TABLET PO SCH (06:47)
[2020-08-01] MEDS: LACTULOSE 20G/30ML UDC PO SCH ×3 (06:52→17:47)
[2020-08-01] MEDS: BLOOD SUGAR DIAGNOSTIC STRIP TEST SCH ×4 (07:01→20:58)
[2020-08-01 07:32] LABS: HEMATOCRIT. 23.9 % (42.0-52.0); HEMOGLOBIN. 8.1 g/dL (14.0-18.0); MEAN CORPUSCULAR VOLUME 100.2 fL (80.0-94.0); MEAN PLATELET VOLUME 11.3 fl (7.4-10.4); RED BLOOD CELL COUNT 2.39 mill/uL (4.7-6.1); RED CELL DISTRIBUTION WIDTH 18.9 % (11.6-14.6)
[2020-08-01 07:38] LABS: PLATELET 43 x1000/uL (130-400)
[2020-08-01] MEDS: INSULIN LISPRO 100 UNITS/ML SUBCUT SCH ×4 (08:00→21:05)
[2020-08-01] MEDS: DOCUSATE SODIUM 100MG CAPSULE PO SCH (09:00)
[2020-08-01] MEDS: POLYETHYLENE GLYCOL 3350 (17GM) 1 DOSE PACK PO SCH (09:41)
[2020-08-01 09:43] LABS: PLATELET ESTIMATE MARKEDLY DECREASED
[2020-08-01] MEDS: AZATHIOPRINE 50MG TABLET PO SCH ×2 (09:43→17:47)
[2020-08-01] MEDS: ZINC SULFATE 220 MG ( 50 ) CAPSULE PO SCH (09:43)
[2020-08-01] MEDS: PANTOPRAZOLE SODIUM 40 MG/VIAL IV SCH (09:44)
[2020-08-01] MEDS: CITRIC ACID/SODIUM CITRATE SOLN 30ML UDC PO SCH ×3 (09:44→17:47)
[2020-08-01] MEDS: INSULIN GLARGINE UD 100 UNITS/ML SYR SUBCUT SCH ×2 (09:50→21:06)
[2020-08-01] MEDS ORDERED: SODIUM POLYSTYRENE SULFONATE 15 G/60 ML BOT PO SCH (10:00)
[2020-08-01] MEDS ORDERED: DILTIAZEM HCL 5MG/ML 5ML VIAL IV SCH (11:45)
[2020-08-01] MEDS: ASCORBIC ACID 500 MG TABLET PO SCH (11:57)
[2020-08-01] MEDS: DEXT 5%/0.45% NACL 1000ML 1,000 ML IV SCH (11:58)
[2020-08-01] MEDS ORDERED: DILTIAZEM HCL 90MG TABLET PO SCH (12:00)
[2020-08-01] MEDS ORDERED: DILTIAZEM HCL 120MG CAPSULE CD 24HR PO SCH (12:00)
[2020-08-01] MEDS: DILTIAZEM HCL 90MG TABLET PO SCH ×2 (13:29→17:47)
[2020-08-01 15:09] LABS: ANTI-MYELOPEROXIDASE AB < 9.0 U/mL (0.0-9.0); ANTI-PROTEINASE 3 ABS 21.5 U/mL (0.0-3.5)
[2020-08-01] MEDS: DILTIAZEM HCL 125 MG in DEXT 5% WATER 100 ML IV SCH (16:02)
[2020-08-01] MEDS: SENNOSIDES/DOCUSATE SOD 8.6/50MG TABLET PO SCH (21:05)
[2020-08-02] VITALS (30 sets, daily range): BP systolic 99–184; BP diastolic 48–79
[2020-08-02] MEDS: METHYLPREDNISOLONE SOD SUCC 125 MG/2 ML VIAL IV SCH ×5 (00:07→23:03)
[2020-08-02] MEDS: LACTULOSE 20G/30ML UDC PO SCH ×5 (00:07→23:03)
[2020-08-02] MEDS: DILTIAZEM HCL 90MG TABLET PO SCH ×5 (00:11→23:04)
[2020-08-02] MEDS: IPRATROPIUM BROMIDE (0.02%) 0.5MG/2.5ML NEB HHN SCH ×4 (01:34→20:12)
[2020-08-02] MEDS: DILTIAZEM HCL 125 MG in DEXT 5% WATER 100 ML IV SCH ×2 (02:15→17:13)
[2020-08-02] MEDS: METOCLOPRAMIDE HCL 10MG/2ML VIAL IV SCH ×3 (05:52→21:27)
[2020-08-02 07:25] LABS: HEMATOCRIT. 23.6 % (42.0-52.0); HEMOGLOBIN. 7.9 g/dL (14.0-18.0); MEAN CORPUSCULAR HEMOGLOBIN 34.1 pg (28.0-32.0); MEAN CORPUSCULAR VOLUME 101.8 fL (80.0-94.0); MEAN PLATELET VOLUME 11.6 fl (7.4-10.4); RED BLOOD CELL COUNT 2.32 mill/uL (4.7-6.1); RED CELL DISTRIBUTION WIDTH 19.5 % (11.6-14.6)
[2020-08-02 07:28] LABS: PHOSPHORUS 6.1 mg/dL (2.5-4.9)
[2020-08-02] MEDS: BLOOD SUGAR DIAGNOSTIC STRIP TEST SCH ×4 (07:30→21:42)
[2020-08-02 07:49] LABS: PLATELET 38 x1000/uL (130-400)
[2020-08-02] MEDS: ZINC SULFATE 220 MG ( 50 ) CAPSULE PO SCH (09:00)
[2020-08-02] MEDS ORDERED: SODIUM POLYSTYRENE SULFONATE 15 G/60 ML BOT PO NR (11:00)
[2020-08-02] MEDS: PANTOPRAZOLE SODIUM 40 MG/VIAL IV SCH (11:03)
[2020-08-02] MEDS: POLYETHYLENE GLYCOL 3350 (17GM) 1 DOSE PACK PO SCH (11:05)
[2020-08-02] MEDS: AZATHIOPRINE 50MG TABLET PO SCH ×2 (11:05→17:10)
[2020-08-02] MEDS: CITRIC ACID/SODIUM CITRATE SOLN 30ML UDC PO SCH ×3 (11:05→17:11)
[2020-08-02] MEDS: DOCUSATE SODIUM SUGAR FREE 100MG/10ML UDC NG SCH ×2 (11:05→17:12)
[2020-08-02] MEDS: LEVOTHYROXINE SODIUM 25MCG TABLET PO SCH (11:05)
[2020-08-02] MEDS: ASCORBIC ACID 500 MG TABLET PO SCH (11:05)
[2020-08-02] MEDS: CALCIUM ACETATE 667MG CAPSULE PO SCH ×3 (11:06→17:10)
[2020-08-02] MEDS: INSULIN GLARGINE UD 100 UNITS/ML SYR SUBCUT SCH ×2 (11:08→22:05)
[2020-08-02] MEDS: INSULIN LISPRO 100 UNITS/ML SUBCUT SCH ×4 (11:17→21:42)
[2020-08-02 13:11] LABS: ATYPICAL P-ANCA <1:20 titer (Neg:<1:20); CYTOPLASMIC C-ANCA <1:20 titer (Neg:<1:20); PERINUCLEAR P-ANCA <1:20 titer (Neg:<1:20)
[2020-08-02 13:27] LABS: PLATELET ESTIMATE MARKEDLY DECREASED
[2020-08-02] MEDS: DEXT 5%/0.45% NACL 1000ML 1,000 ML IV SCH (13:35)
[2020-08-02] MEDS: SENNOSIDES/DOCUSATE SOD 8.6/50MG TABLET PO SCH (21:27)
[2020-08-02] MEDS: HYDROMORPHONE HCL/PF 2MG/ML CPJ IV PRN (21:29)
[2020-08-02] MEDS ORDERED: ACETYLCYSTEINE 100MG/ML 10% VIAL 4ML INH SCH (22:00)
[2020-08-03] VITALS: BP 111/34
[2020-08-03] MEDS: IPRATROPIUM BROMIDE (0.02%) 0.5MG/2.5ML NEB HHN SCH (00:08)
[2020-08-03 02:00] VITALS: BP 124/48
[2020-08-03] MEDS ORDERED: EPINEPHRINE 0.1MG/ML (1:10,000) 10ML SYR ONE (07:30)
[2020-08-03] MEDS ORDERED: SODIUM BICARBONATE 8.4% 1 MEQ/ML 50ML SYR IV ONE (07:30)
[2020-08-03] MEDS ORDERED: CALCIUM CHLORIDE 1GM/10ML SYR IV ONE (07:30)
== END 2020-08-03 04:49 | DRG 342 ==
LOC: ER 05:25 → 5WST 09:16 → ENRESERV 17:35 → 5EST 07-28 08:50
PROVIDERS: ADMIT Internal Medicine; ATTEND Internal Medicine
PROC: 30233N1 Transfusion of Nonautologous Red Blood Cells into Peripheral Vein, Percutaneous Approach (ICD-10-PCS; 2020-07-13)
PROC: 02HV33Z Insertion of Infusion Device into Superior Vena Cava, Percutaneous Approach (ICD-10-PCS; 2020-07-14)
PROC: B548ZZA Ultrasonography of Superior Vena Cava, Guidance (ICD-10-PCS; 2020-07-14)
PROC: 0W9G3ZZ Drainage of Peritoneal Cavity, Percutaneous Approach (ICD-10-PCS; 2020-07-14)
PROC: 0W9B3ZZ Drainage of Left Pleural Cavity, Percutaneous Approach (ICD-10-PCS; 2020-07-15)
PROC: 02HV33Z Insertion of Infusion Device into Superior Vena Cava, Percutaneous Approach (ICD-10-PCS; 2020-07-30)
PROC: B548ZZA Ultrasonography of Superior Vena Cava, Guidance (ICD-10-PCS; 2020-07-30)
PROC: 5A12012 Performance of Cardiac Output, Single, Manual (ICD-10-PCS; principal; 2020-08-03)
PROC: 0BH17EZ Insertion of Endotracheal Airway into Trachea, Via Natural or Artificial Opening (ICD-10-PCS; 2020-08-03)
DX: S42.351A Displaced comminuted fracture of shaft of humerus, right arm, initial encounter for closed fracture (principal); J96.00 Acute respiratory failure, unspecified whether with hypoxia or hypercapnia; G92 Toxic encephalopathy; E43 Unspecified severe protein-calorie malnutrition; D61.818 Other pancytopenia; J18.9 Pneumonia, unspecified organism; I50.33 Acute on chronic diastolic (congestive) heart failure; D70.9 Neutropenia, unspecified; K65.2 Spontaneous bacterial peritonitis; L89.153 Pressure ulcer of sacral region, stage 3; N17.9 Acute kidney failure, unspecified; D69.6 Thrombocytopenia, unspecified; E11.22 Type 2 diabetes mellitus with diabetic chronic kidney disease; E11.649 Type 2 diabetes mellitus with hypoglycemia without coma; E87.5 Hyperkalemia; W01.0XXA Fall on same level from slipping, tripping and stumbling without subsequent striking against object, initial encounter; B19.20 Unspecified viral hepatitis C without hepatic coma; D53.9 Nutritional anemia, unspecified; E78.00 Pure hypercholesterolemia, unspecified; E78.5 Hyperlipidemia, unspecified; E88.09 Other disorders of plasma-protein metabolism, not elsewhere classified; F17.210 Nicotine dependence, cigarettes, uncomplicated; G89.29 Other chronic pain; I13.0 Hypertensive heart and chronic kidney disease with heart failure and stage 1 through stage 4 chronic kidney disease, or unspecified chronic kidney disease; I27.29 Other secondary pulmonary hypertension; K74.60 Unspecified cirrhosis of liver; N18.9 Chronic kidney disease, unspecified; R18.8 Other ascites; K76.9 Liver disease, unspecified; I77.6 Arteritis, unspecified; K59.00 Constipation, unspecified; M32.9 Systemic lupus erythematosus, unspecified; K21.9 Gastro-esophageal reflux disease without esophagitis; I46.9 Cardiac arrest, cause unspecified; B18.2 Chronic viral hepatitis C; E66.01 Morbid (severe) obesity due to excess calories; F32.9 Major depressive disorder, single episode, unspecified; I47.1 Supraventricular tachycardia; I48.91 Unspecified atrial fibrillation; J44.0 Chronic obstructive pulmonary disease with (acute) lower respiratory infection; I48.92 Unspecified atrial flutter; M13.0 Polyarthritis, unspecified; M48.061 Spinal stenosis, lumbar region without neurogenic claudication; N39.0 Urinary tract infection, site not specified; N49.3 Fournier gangrene; Z20.822 Contact with and (suspected) exposure to COVID-19; Z79.4 Long term (current) use of insulin; Z79.899 Other long term (current) drug therapy; Z86.16 Personal history of COVID-19; Z68.42 Body mass index [BMI] 45.0-49.9, adult; Z91.19 Patient's noncompliance with other medical treatment and regimen; Y93.89 Activity, other specified; Y92.89 Other specified places as the place of occurrence of the external cause; Y99.8 Other external cause status
CPT/HCPCS: 32555; 36415; 36430; 36600; 49083; 71045; 72170; 73030; 73562; 76770; 76937; 78580; 80048; 80053; 80061; 80076; 81003; 82040; 82085; 82105; 82140; 82150; 82164; 82270; 82375; 82550; 82595; 82607; 82652; 82728; 82746; 82805; 82955; 82962; 83516; 83520; 83540; 83550; 83615; 83735; 83986; 84100; 84132; 84134; 84155; 84165; 84439; 84443; 84481; 84484; 84550; 85014; 85018; 85025; 85041; 85044; 85384; 85651; 86022; 86038; 86078; 86160; 86225; 86256; 86592; 86780; 86850; 86880; 86900; 86920; 87426; 88108; 88312; 92950; 93005; 93970; 94640; 99291; A4565; A6261; C1725; C1893; C9113; J0282; J0456; J0696; J1160; J1170; J1200; J1815; J1940; J1956; J2060; J2270; J2405; J2765; J2920; J2930; J3490; J7040; J7060; J7500; J7608; P9016; P9021; Q0163; A4315